=== PATIENT | male | born 1955 | race Caucasian/White ===

== ENCOUNTER 2024-03-21 16:45 | Emergency (ER) | payer MEDICARE, OTHER, SELFPAY ==
[2024-03-21] VITALS (15 sets, daily range): BP systolic 100–130; BP diastolic 63–92; PULSE 52–136; RESP 12–22; TEMP 36.7; O2SAT 93–98
--- NOTE | ~2024-03-21 | CT_ITS ---
EXAMINATION: CTA brain carotid DATE: 03/21/2024 19:10 INDICATION: concern for CVA TECHNIQUE: Computed tomographic angiography (CTA) of the head was performed without and with 100 mL O mnipaque-350 intravenous contrast. CTA of the neck was performed with intravenous contrast. Automated exposure control and iterative reconstruction technique were employed. The dose-length product was 1 951.76 mGy-cm. Maximum intensity projection and volume rendered 3D-reconstructions were created by delaney diaz technologist on a separate workstation. COMPARISON: None. FINDINGS: CT BRAIN: No acute large vessel infarct, intracranial hemorrhage, mass, or hydrocephalus. Moderate atrophy and chronic white matter change. Bilateral lens replacements. CTA HEAD: No large vessel occlusion, aneurysm, high flow vascular malformation, nidus or extravasation. Persist ent origin of the left posterior cerebral artery. Patent cerebral veins. Symmetric parenchymal enhancement. CTA NECK: Aortic arch and proximal great vessels: Dilated ascending aorta measuring up to 4.5 cm. Mild arch roberth cification. Normal arch anatomy. Right common carotid, carotid bifurcation, and internal carotid artery: Mild calcification at the bif urcation.There is 0% stenosis of the proximal right internal carotid artery relative to normal distal artery lumen diameter (NASCET criteria). Left common carotid, carotid bifurcation, and internal carotid artery: Mild calcification at the bifu rcation.There is 0% stenosis of the proximal left internal carotid artery relative to normal distal a rtery lumen diameter (NASCET criteria). Vertebral arteries: No significant plaque or stenosis. Vertebral arteries co-dominant. Other findings: None. IMPRESSION: No large vessel intracranial occlusion, high-grade intracranial stenosis, or aneurysm. No carotid or vertebral artery occlusion, dissection, or significant stenosis. Ectasia of the ascending thoracic aorta measuring up to 4.5 cm. Reviewed, dictated and finalized at location K. IMPRESSION: No large vessel intracranial occlusion, high-grade intracranial stenosis, or an eurysm. No carotid or vertebral artery occlusion, dissection, or significant stenosis. Ectasia of the ascending thoracic aorta measuring up to 4.5 cm.
--- NOTE | 2024-03-21 17:19 | ECG_ITS ---
SEE SCANNED COPY FOR CONFIRMED REPORT MTDD
--- NOTE | 2024-03-21 17:20 | PC.NURSE ---
This RN witness pt w/unsteady gait, patient refuses wheelchair.
[2024-03-21 17:59] LABS: Basophils Percent Auto 0.4 % (0.2-1.2); Eosinophils Percent Auto 0.4 % (0-4.4); Hematocrit 41.7 % (42.0-52.0); Hemoglobin 14.2 g/dL (14.0-18.0); Immature Granulocyte Absolute 0.01 K/mm3 (0.00-0.031); Immature Granulocyte Percent A 0.1 % (0-0.5); Immature Platelet Fraction Pct 7.3 % (0.9-11.2); Lymphocytes Absolute Auto 2.35 K/mm3 (0.9-3.2); Lymphocytes Percent Auto 34.1 % (18.3-44.2); Mean Corpuscular HGB Conc 34.1 g/dl (32-36); Mean Corpuscular Hemoglobin 32.5 pg (26-34); Mean Corpuscular Volume 95.4 fl (80-100); Mean Platelet Volume 11.5 fl (7.4-10.4); Monocytes Absolute Auto 0.9 K/mm3 (0.1-0.6); Monocytes Percent Auto 12.3 % (2.6-8.5); Neutrophils Absolute Auto 3.6 K/mm3 (1.3-6.7); Neutrophils Percent Auto 52.7 % (45.5-73.1); Platelet Count Result 119 k/mm3 (150-375); Red Blood Count 4.37 M/mm3 (4.6-6.20); Red Cell Distribution Width 12.4 % (11.5-14.5); White Blood Count 6.9 K/mm3 (4.5-10.0)
--- NOTE | 2024-03-21 17:59 | ED.GENADULT ---
HPI - General Adult General Chief complaint: Neuro Symptoms/Deficit Stated complaint: possible TIA Time Seen by Provider: 03/21/24 17:34 History of Present Illness HPI narrative: 68-year-old male presents to the emergency department for evaluation for increased lethargy, altered mental status. Patient does have dementia at baseline and does live in a memory care unit. Staff and family felt that the patient has been less active than his typical baseline. Patient did have a urinary tract infection a few weeks ago but this was treated. Patient denies any falls or injuries. Patient is DNR. Patient does have history of AFib and is on Eliquis. Related Data Allergies Allergy/AdvReac Type Severity Reaction Status Date / Time Penicillins Allergy Unknown Verified 03/21/24 17:21 Review of Systems Review of Systems: All systems reviewed & are unremarkable except as noted in HPI and below Exam Narrative: APPEARANCE: Well appearing, no pain, no distress, well-nourished. HEAD: normocephalic, atraumatic. EYES: PERRLA/EOMI, conjunctivae clear. NOSE: Normal no drainage EARS:TMS clear with good light reflex. THROAT: Pharynx clear, no exudate. NECK: Supple. No adenopathy, no masses. RESPIRATORY: Airway patent, respirations nonlabored. Clear to auscultation bilaterally, no rales, rhonchi, wheezing. CARDIOVASCULAR: Regular rate and rhythm without murmurs rubs or gallops. ABDOMINAL: Soft, nontender, nondistended, normal bowel sounds MUSCULOSKELETAL: Moves all extremities. Strength/ROM intact, No edema, No calf tenderness. NEURO: Alert. Cranial nerves II through XII intact. Difficulty participating in neuro exam but no focal deficit noted SKIN: Warm, dry. Normal Color Course Vital Signs Vital signs: Vital Signs Temperature 98.0 F 03/21/24 17:13 Pulse Rate 52 L 03/21/24 17:13 Respiratory Rate 16 03/21/24 17:13 Blood Pressure 100/63 03/21/24 17:13 Pulse Oximetry 96 03/21/24 17:13 Oxygen Delivery Room Air 03/21/24 17:13 Temperature 98.0 F 03/21/24 17:13 Pulse Rate 95 03/21/24 20:32 Respiratory Rate 17 03/21/24 20:32 Blood Pressure 120/80 03/21/24 20:32 Pulse Oximetry 98 03/21/24 20:16 Oxygen Delivery Room Air 03/21/24 17:13 Medical Decision Making MDM Narrative Medical decision making narrative: 68-year-old male present to the emergency department for evaluation for being less energetic than normal. Patient is afebrile with no leukocytosis and a stable hemoglobin. patient's creatinine is 1.7 and patient was treated with a L of IV fluids. No previous kidney function as documented. Patient no longer has a urinary tract infection on his UA. Patient denies any cough has no shortness of breath. Head CT was ordered and showed no acute abnormalities. Family was updated the results of the workup and they are comfortable with the patient going back to his care facility. The possibility of missing a CVA was discussed and they were still comfortable with the patient being discharged back to his care facility. Patient is on Eliquis. On re-evaluation patient has no complaints and as alert and appropriate Differential Diagnosis Differential Diagnosis: head injury, CVA, TIA, UTI COVID, RSV, influenza, dementia, delirium Vital Signs Vital Signs: Vital Signs Temperature 98.0 F 03/21/24 17:13 Pulse Rate 52 L 03/21/24 17:13 Respiratory Rate 16 03/21/24 17:13 Blood Pressure 100/63 03/21/24 17:13 Pulse Oximetry 96 03/21/24 17:13 Oxygen Delivery Room Air 03/21/24 17:13 Temperature 98.0 F 03/21/24 17:13 Pulse Rate 95 03/21/24 20:32 Respiratory Rate 17 03/21/24 20:32 Blood Pressure 120/80 03/21/24 20:32 Pulse Oximetry 98 03/21/24 20:16 Oxygen Delivery Room Air 03/21/24 17:13 Lab Data Lab results reviewed: Yes I reviewed the patient's lab results. 03/21/24 17:34 03/21/24 17:34 Labs: Lab Results 03/21/24
[2024-03-21 18:07] LABS: Alanine Aminotransferase 27 U/L (6-50); Albumin Level 4.7 g/dL (3.5-5.1); Alkaline Phosphatase 58 U/L (38-126); Anion Gap 13 mmol/L (4-12); Aspartate Amino Transferase 41 U/L (17-59); Bilirubin,Total 0.7 mg/dL (0.2-1.3); Blood Urea Nitrogen 38 mg/dL (9-20); Calcium 9.4 mg/dL (8.4-10.2); Carbon Dioxide 21 mmol/L (22-30); Chloride 106 mmol/L (98-107); Estimated CRCL calculation 46 ml/min; Estimated Glomerular Filt Rate 40; Glucose 117 mg/dL (65-110); Potassium 4.3 mmol/L (3.4-5.0); Sodium 140 mmol/L (137-145)
[2024-03-21 18:11] LABS: INR 1.4; Prothrombin Time 17.5 Seconds (11.1-14.7)
[2024-03-21 18:12] LABS: Partial Thromboplastin Time 34.4 Seconds (22.3-36.8)
[2024-03-21 18:27] LABS: Appearance Urine Clear (Clear); Bacteria Urine None Seen /hpf; Bilirubin Urine Negative (Negative); Blood Urine Negative (Negative); Color Urine Dark Yellow (Yellow); Glucose Urine UA Negative (Negative); Ketones Urine 1+ mg/dL (Negative); Leukocyte Esterase Ur Negative LEU/UL (Negative); Nitrate Urine Negative (Negative); Non Pathogenic Casts 0-2; Protein Urine Trace mg/dL (Negative); RBC Urine 0-2 /hpf (0-2); Squamous Epithelial Cell Urine None Seen /hpf (Few); WBC Urine 0-5 /hpf (0-3); pH Urine 5.5 (5.0-9.0)
[2024-03-21 18:31] LABS: Add Urine Microscopic? YES
--- NOTE | 2024-03-21 19:36 | PC.NURSE ---
This RN assumed care of pt after receiving report from KATHERINE Israel @ [id number].
--- NOTE | 2024-03-21 19:49 | PC.NURSE ---
Pt received straight cath by brett Gaming prior to this RN's arrival. Order placed just now.
[2024-03-21] MEDS: SODIUM CHLORIDE 0.9% IV 1,000 ML 999 ML IV CONT (19:54)
== END 2024-03-21 21:09 ==
PROVIDERS: Emergency Provider Emergency Medicine
DX: E86.0 Dehydration (principal); R41.0 Disorientation, unspecified; I48.91 Unspecified atrial fibrillation; Z66 Do not resuscitate; Z79.01 Long term (current) use of anticoagulants; I45.10 Unspecified right bundle-branch block; R94.31 Abnormal electrocardiogram [ECG] [EKG]; I77.810 Thoracic aortic ectasia
CPT/HCPCS: 36415; 70496; 70498; 80053; 81001; 85025; 85055; 85610; 85730; 93005; 96360; 99284; J7030; Q9967

== ENCOUNTER 2024-05-13 08:22 | Emergency (ER) | payer MEDICARE, OTHER, SELFPAY ==
--- NOTE | ~2024-05-13 | CT_ITS ---
EXAMINATION: CT brain wo con DATE: 05/13/2024 09:08 INDICATION: Status post fall. Patient on blood thinners. TECHNIQUE: Computed tomography (CT) of the head was performed without intravenous contrast. The dose- length product was 1286.34 mGy-cm. Automated exposure control and iterative reconstruction technique were employed. COMPARISON: None FINDINGS: Generalized atrophy. There are scattered mild periventricular and subcortical white matter changes, most likely related to small vessel ischemic disease (microangiopathy). No acute intracrania l hemorrhage, infarction, mass or mass effect. Paranasal sinuses and mastoids are pneumatized. No dep ressed skull fractures. IMPRESSION: 1. No acute intracranial abnormality. 2: Chronic age-related findings. Reviewed, dictated and finalized at location B.
--- NOTE | ~2024-05-13 | CT_ITS ---
EXAMINATION: CT cervical spine wo con DATE: 05/13/2024 09:08 INDICATION: Neck pain after fall TECHNIQUE: Computed tomography (CT) of the cervical spine was performed without intravenous contrast. The dose-length product was 512 mGy-cm. Automated exposure control and iterative reconstruction tech nique were employed. COMPARISON: None FINDINGS: Mild levocurvature of the cervical spine. There is disc narrowing at all cervical spine lev els. There is multilevel uncinate and facet hypertrophy. There is carotid atherosclerosis. Odontoid p rocess is normal. Craniovertebral junction is normal. Lung apices are normal. No paraspinal soft tiss ue abnormality. IMPRESSION: 1. No acute abnormality of the cervical spine. 2: Severe cervical spondylosis. Reviewed, dictated and finalized at location B.
[2024-05-13 08:41] VITALS: BP 125/79; PULSE 87; RESP 16; TEMP 36.3; O2SAT 98
[2024-05-13 09:32] VITALS: BP 124/96; PULSE 86; RESP 18; O2SAT 100
--- NOTE | 2024-05-13 10:26 | ED.GENADULT ---
HPI - General Adult General Chief complaint: Head Injury Stated complaint: fall, head injury Time Seen by Provider: 05/13/24 09:57 History of Present Illness HPI narrative: 68-year-old male presenting to the emergency department for evaluation after having a head injury at his correction. Staff called the family and told he had a fall and family brought the patient in by private. Patient does have a hematoma on his left forehead but denies any other pain or injury. Patient is on Eliquis. Patient was able to ambulate in the emergency department at his baseline. Related Data Allergies Allergy/AdvReac Type Severity Reaction Status Date / Time Penicillins Allergy Unknown Verified 05/13/24 09:26 Review of Systems Review of Systems: All systems reviewed & are unremarkable except as noted in HPI and below Exam Narrative: APPEARANCE: Well appearing, no pain, no distress, well-nourished. HEAD: normocephalic, left forehead contusion. EYES: PERRLA/EOMI, conjunctivae clear. NOSE: Normal no drainage EARS:TMS clear with good light reflex. THROAT: Pharynx clear, no exudate. NECK: Supple. No adenopathy, no masses. RESPIRATORY: Airway patent, respirations nonlabored. Clear to auscultation bilaterally, no rales, rhonchi, wheezing. CARDIOVASCULAR: Regular rate and rhythm without murmurs rubs or gallops. ABDOMINAL: Soft, nontender, nondistended, normal bowel sounds MUSCULOSKELETAL: Moves all extremities. Strength/ROM intact, No edema, No calf tenderness. NEURO: Alert. Cranial nerves II through XII intact. Grossly intact SKIN: Warm, dry. Normal Color Course Course Emergency Course: Patient family are comfortable plan for discharge back to the [facility] care unit Vital Signs Vital signs: Vital Signs Temperature 97.4 F L 05/13/24 08:41 Pulse Rate 87 05/13/24 08:41 Respiratory Rate 16 05/13/24 08:41 Blood Pressure 125/79 05/13/24 08:41 Pulse Oximetry 98 05/13/24 08:41 Oxygen Delivery Room Air 05/13/24 08:41 Temperature 97.4 F L 05/13/24 08:41 Pulse Rate 85 05/13/24 10:46 Respiratory Rate 16 05/13/24 10:46 Blood Pressure 124/96 H 05/13/24 10:46 Pulse Oximetry 97 05/13/24 10:46 Oxygen Delivery Room Air 05/13/24 08:41 Medical Decision Making MDM Narrative Medical decision making narrative: 68-year-old male presents to the emergency department for evaluation for a head injury. Patient does have a hematoma on his left forehead but no laceration or abrasion needing repair. Head and neck CTs were negative. Patient family are comfortable with plan for the patient to return back to his care facility. Differential Diagnosis Differential Diagnosis: Subarachnoid hemorrhage, subdural hematoma, cervical spine fracture, skull fracture, contusion, concussion Vital Signs Vital Signs: Vital Signs Temperature 97.4 F L 05/13/24 08:41 Pulse Rate 87 05/13/24 08:41 Respiratory Rate 16 05/13/24 08:41 Blood Pressure 125/79 05/13/24 08:41 Pulse Oximetry 98 05/13/24 08:41 Oxygen Delivery Room Air 05/13/24 08:41 Temperature 97.4 F L 05/13/24 08:41 Pulse Rate 85 05/13/24 10:46 Respiratory Rate 16 05/13/24 10:46 Blood Pressure 124/96 H 05/13/24 10:46 Pulse Oximetry 97 05/13/24 10:46 Oxygen Delivery Room Air 05/13/24 08:41 Imaging Data Radiologist's impression: Impressions Head CT 05/13/24 09:12 IMPRESSION: 1. No acute intracranial abnormality. 2: Chronic age-related findings. Cervical Spine CT 05/13/24 09:16 IMPRESSION: 1. No acute abnormality of the cervical spine. 2: Severe cervical spondylosis. Discharge Plan Discharge Clinical Impression: Closed head injury Patient Disposition: Home, Self-Care Condition: Stable Instructions: Antibiotic Form, Head Injury (ED) Additional Instructions: You are at increased risk of falling. Take the appropriate precautions. Have close follow-up with your primary care physici
--- NOTE | 2024-05-13 10:43 | PC.NURSE ---
Attempted to call [facility] to inform them that patient is being discharged and daughter will be bringing pt back. This RN did not receive an answer.
[2024-05-13 10:46] VITALS: BP 124/96; PULSE 85; RESP 16; O2SAT 97
== END 2024-05-13 10:46 ==
PROVIDERS: Emergency Provider Emergency Medicine; PCP Nurse Practitioner Family
DX: S00.83XA Contusion of other part of head, initial encounter (principal); Z79.01 Long term (current) use of anticoagulants; M47.812 Spondylosis without myelopathy or radiculopathy, cervical region; W19.XXXA Unspecified fall, initial encounter
CPT/HCPCS: 70450; 72125; 99284

== ENCOUNTER 2024-06-07 15:27 | Inpatient (IN) | payer MEDICARE, OTHER, SELFPAY ==
[2024-06-07] VITALS (10 sets, daily range): BP systolic 86–118; BP diastolic 53–89; PULSE 85–119; RESP 14–21; TEMP 36.4–36.9; O2SAT 95–100; BMI 27.3
--- NOTE | ~2024-06-07 | XR_ITS ---
EXAMINATION: XR chest 1V portable DATE: 06/07/2024 16:59 INDICATION: Hypotension TECHNIQUE: frontal view of the chest was obtained. COMPARISON: None FINDINGS: The lungs are clear with no focal airspace opacities, pulmonary edema, pleural effusion or pneumothor ax. Heart size is normal. Postoperative change of prior median sternotomy and cardiac valve repair, l ikely mitral. Calcified right hilar lymph node consistent with old granulomatous disease. IMPRESSION: 1. No acute cardiopulmonary disease. Reviewed, dictated and finalized at location A.
--- NOTE | ~2024-06-07 | CT_ITS ---
EXAMINATION: CT brain wo con DATE: 06/07/2024 17:14 INDICATION: Anticoagulated patient with dementia found down on floor. TECHNIQUE: Computed tomography (CT) of the head was performed without intravenous contrast. Sagittal and coronal reconstructions were performed. The dose Olvin head The dose-length product was 605.33 mGy-cm. COMPARISON: head CT dated 05/13/2024 FINDINGS: No fracture. There are multiple foci of gas surrounding the sella likely intravenous gas at the olinda nous sinus. Additional gas can be seen tracking within the bilateral sphenoparietal sinuses and in vi ew of the veins in the bilateral multi media specialist spaces. No evident pneumoencephaly. No acute intracranial hemorrhage, acute infarction or abnormal extra axial fluid collection. There is mild scattered white matter hypoattenuation consistent with chronic small vessel ischemic disease. Symmetric prominence o f the sulci and and subarachnoid spaces overlying the convexities consistent with moderate age-approp riate diffuse cerebral volume loss. Ventricles are normal and symmetric. No mass/mass effect. Change s of bilateral intraocular lens replacement. The orbits, paranasal sinuses and mastoid air cells are normal. IMPRESSION: 1. Prominent scattered likely intravenous gas. No fracture or acute intracranial process. 2. Stable appearance of age related changes including moderate diffuse volume loss and mild scattered white matter hypoattenuation consistent with chronic small vessel ischemic disease. Reviewed, dictated and finalized at location A. IMPRESSION: 1. Prominent scattered likely intravenous gas. No fracture or acute intracrania l process. 2. Stable appearance of age related changes including moderate diffuse volume l oss and mild scattered white matter hypoattenuation consistent with chronic sma ll vessel ischemic disease.
[2024-06-07] MEDS: SODIUM CHLORIDE 0.9% IV 3,000 ML 999 ML IV CONT (16:20)
[2024-06-07 16:55] LABS: Basophils Percent Auto 0.1 % (0.2-1.2); Eosinophils Percent Auto 0.1 % (0-4.4); Hematocrit 35.8 % (42.0-52.0); Hemoglobin 12.1 g/dL (14.0-18.0); Immature Granulocyte Absolute 0.03 K/mm3 (0.00-0.031); Immature Granulocyte Percent A 0.4 % (0-0.5); Immature Platelet Fraction Pct 6.5 % (0.9-11.2); Lymphocytes Absolute Auto 0.74 K/mm3 (0.9-3.2); Lymphocytes Percent Auto 10.5 % (18.3-44.2); Mean Corpuscular HGB Conc 33.8 g/dl (32-36); Mean Corpuscular Hemoglobin 33.1 pg (26-34); Mean Corpuscular Volume 97.8 fl (80-100); Mean Platelet Volume 11.2 fl (7.4-10.4); Monocytes Absolute Auto 0.5 K/mm3 (0.1-0.6); Monocytes Percent Auto 7.6 % (2.6-8.5); Neutrophils Absolute Auto 5.8 K/mm3 (1.3-6.7); Neutrophils Percent Auto 81.3 % (45.5-73.1); Platelet Count Result 127 k/mm3 (150-375); Red Blood Count 3.66 M/mm3 (4.6-6.20); Red Cell Distribution Width 12.8 % (11.5-14.5); White Blood Count 7.1 K/mm3 (4.5-10.0)
[2024-06-07 17:04] LABS: Partial Thromboplastin Time 32.2 Seconds (22.3-36.8)
[2024-06-07 17:05] LABS: Lactic Acid Reflex 1.7 mmol/L (0.7-2.0)
[2024-06-07 17:06] LABS: Ethanol < 10 mg/dL (<10); Phosphorus 3.5 mg/dL (2.5-4.5)
[2024-06-07 17:12] LABS: Add Urine Microscopic? YES; Appearance Urine Cloudy (Clear); Bacteria Urine None Seen /hpf; Bilirubin Urine Negative (Negative); Blood Urine Negative (Negative); Color Urine Yellow (Yellow); Glucose Urine UA Negative (Negative); Ketones Urine Trace mg/dL (Negative); Leukocyte Esterase Ur Negative LEU/UL (Negative); Need Manual Microscopic Reviewed; Nitrate Urine Negative (Negative); Protein Urine 2+ mg/dL (Negative); RBC Urine 0-2 /hpf (0-2); Specific Grav Ur 1.018 (1.001-1.035); Squamous Epithelial Cell Urine Few /hpf (Few)
[2024-06-07 17:15] LABS: Amphetamine Screen Urine Negative (Negative); Barbiturate Screen Urine Negative (Negative); Benzodiazepines Screen Urine Negative (Negative); Cannabinoid Screen Urine Negative (Negative); Cocaine Screen Urine Negative (Negative); Methadone Screen Urine Negative (Negative); Opiate Screen Urine Negative (Negative); Phencyclidine Screen Urine Negative (Negative)
[2024-06-07 17:17] LABS: Troponin I < 0.012 ng/mL (0.000-0.034)
[2024-06-07 17:21] LABS: Alanine Aminotransferase 20 U/L (6-50); Alkaline Phosphatase 68 U/L (38-126); Anion Gap 9 mmol/L (4-12); Aspartate Amino Transferase 29 U/L (17-59); Bilirubin,Total 0.2 mg/dL (0.2-1.3); Blood Urea Nitrogen 22 mg/dL (9-20); Calcium 8.8 mg/dL (8.4-10.2); Carbon Dioxide 28 mmol/L (22-30); Chloride 97 mmol/L (98-107); Estimated CRCL calculation 46 ml/min; Estimated Glomerular Filt Rate 43; Glucose 111 mg/dL (65-110); Lipase 206 U/L (23-300); Potassium 4.3 mmol/L (3.4-5.0); Sodium 134 mmol/L (137-145)
[2024-06-07 17:26] LABS: NT Pro B Type Natriuretic Pept 1940 pg/mL (19.9-100)
[2024-06-07 17:34] LABS: Influenza A QL RT-PCR Negative (Negative); Influenza B QL RT-PCR Negative (Negative); RSV RNA, RT-PCR Negative (Negative); SARS-CoV-2 RNA PCR Negative (Negative)
--- NOTE | 2024-06-07 19:24 | ED.GENADULT ---
HPI - General Adult General Chief complaint: Fall Stated complaint: fall Time Seen by Provider: 06/07/24 16:07 History of Present Illness HPI narrative: This is a 68-year-old male with early dementia presenting for a fall. Patient was found sitting on the floor his room in the long-term. Nursing was concerned because his blood pressures were soft with a felt like his hands were purplish in cold. He was then sent to the hospital for evaluation. Patient has dementia and has no complaints at this time. He does not remember the events that led him to the ED. He is denying fevers chills chest abdominal pain or urinary symptoms. Patient is DNR DNI. Related Data Allergies Allergy/AdvReac Type Severity Reaction Status Date / Time Penicillins Allergy Unknown Verified 05/13/24 09:26 [facility] Past Medical History Medical History Dementia Exam Narrative: APPEARANCE: No apparent distress. A&O times 1-2 which is baseline Head: atraumatic. EYES: EOMI, NOSE: Atraumatic NECK: Trachea midline RESPIRATORY: No increased rate of breathing clear to auscultation CARDIOVASCULAR: RRR, pitting edema lower extremities which is chronic ABDOMINAL: Non-distended soft nontender MUSCULOSKELETAl: No obvious deformities NEURO: Alert. Cranial nerves 2-12 grossly intact. Sensation light touch, motor function cerebellar function intact for 4 extremities. Gait exam was deferred SKIN:: Warm, dry. Normal color PSYCHIATRIC: Normal affect Course Vital Signs Vital signs: Vital Signs Temperature 97.6 F 06/07/24 15:33 Pulse Rate 92 06/07/24 15:33 Respiratory Rate 18 06/07/24 15:33 Blood Pressure 86/53 L 06/07/24 15:33 Pulse Oximetry 100 06/07/24 15:33 Oxygen Delivery Room Air 06/07/24 15:33 Temperature 97.6 F 06/07/24 15:33 Pulse Rate 112 H 06/07/24 18:16 Respiratory Rate 18 06/07/24 18:16 Blood Pressure 115/79 06/07/24 18:16 Pulse Oximetry 98 06/07/24 18:16 Oxygen Delivery Room Air 06/07/24 15:33 Medical Decision Making MDM Narrative Medical decision making narrative: -Course: 68-year-old male with dementia presenting after being found for his apartment. On arrival his blood pressures were soft. Was given 30 cc/kilogram bolus with improvement in blood pressure. Full sepsis workup ordered. Patient found have a UTI and was started on ceftriaxone. CT of the head showed gas in the venous system. This could be caused due to peripheral IV insertion or trauma. Dr. Julian from Neurosurgery was consulted. No evidence of skull fracture on imaging or exam. Patient is DNR DNI. Conservative management only. Patient placed on 100% NRB 02. Patient will be admitted the hospital for further management. Workup and findings discussed with family (Abel PEÑA) and they are in agreement. -DDX includes but is not limited to: Sepsis, dehydration, intracranial hemorrhage, progression of dementia, UTI, pneumonia, viral syndrome -Co-morbidities complicating care: Advanced dementia, AFib on Eliquis -Social determinants of health: alf resident, Denies drugs or alcohol -Hx from independent Sources: Family @ bedside -Independent interpretation of studies: White count 7.1. Hemoglobin 12 point 1. Metabolic panel showed slight hyponatremia and hypochloremia. Kidney function at baseline. Lactic 1.7 Troponin undetectable BNP 1900. Patient has some chronic pitting edema of lower extremities but no cardiomegaly or pulmonary edema on chest x-ray. Patient was monitored during fluid resuscitation and any further distress and blood pressure responded appropriately Urine with 6-10 white blood cells and trace ketones. Started on ceftriaxone while we await culture results. UDS and alcohol level undetectable. Viral swabs negative. CT head reviewed Chest x-ray reviewed -Discussion of Management/Consultants: Dr. Julian NSX, Dr. Zapata Hospitalist -Interventions:
--- NOTE | 2024-06-07 19:44 | ECG_ITS ---
Test Date: 2024-06-07 19:48:15 Measurements Intervals [place] Rate: 93 P: 0 CA: 0 QRS: 20 QRSD: 87 T: 23 QT: 368 QTc: 460 Interpretive Statements ATRIAL FIBRILLATION POSSIBLE RIGHT VENTRICULAR CONDUCTION DELAY [RSR (QR) IN V1/V2] NONSPECIFIC ST & T-WAVE ABNORMALITY ABNORMAL RHYTHM ECG No previous ECG available for comparison Electronically Signed On 06-08-2024 09:55:06 CDT by Ramses Petersen M.D.
--- NOTE | 2024-06-07 19:50 | PC.NURSE ---
Pt placed on 10L nonrebreather per EDP Dr. Wooten's request after receiving CT scan report.
--- NOTE | 2024-06-07 20:15 | PC.NURSE ---
[facility] given update.
[2024-06-07 20:17] LABS: Troponin I < 0.012 ng/mL (0.000-0.034)
--- NOTE | 2024-06-07 20:29 | PM.IMHP ---
H&P: HPI History of Present Illness Date/Time: 06/07/24 20:29 Chief Complaint: fall Narrative: This is a 68-year-old male with past medical history significant for advanced dementia patient lives at Memory Care Unit in local senior care. Patient was found sitting on the floor was brought to the emergency room for evaluation preliminary workup has been Significant for urinalysis with 6-10 WBCs present, a CT of the head showed scattered intravenous gas. History has been obtained upon reviewing medical records ,emergency room physician and daughter who is at bedside patient is demented unable to give any history. Patient has been placed in observation for further evaluation management and treatment EXAMINATION: XR chest 1V portable DATE: 06/07/2024 16:59 INDICATION: Hypotension TECHNIQUE: frontal view of the chest was obtained. COMPARISON: None FINDINGS: The lungs are clear with no focal airspace opacities, pulmonary edema, pleural effusion or pneumothorax. Heart size is normal. Postoperative change of prior median sternotomy and cardiac valve repair, likely mitral. Calcified right hilar lymph node consistent with old granulomatous disease. IMPRESSION: 1. No acute cardiopulmonary disease. EXAMINATION: CT brain wo con DATE: 06/07/2024 17:14 INDICATION: Anticoagulated patient with dementia found down on floor. TECHNIQUE: Computed tomography (CT) of the head was performed without intravenous contrast. Sagittal and coronal reconstructions were performed. The dose Olvin head The dose-length product was 605.33 mGy-cm. COMPARISON: head CT dated 05/13/2024 FINDINGS: No fracture. There are multiple foci of gas surrounding the sella likely intravenous gas at the cavernous sinus. Additional gas can be seen tracking within the bilateral sphenoparietal sinuses and in view of the veins in the bilateral assembly machine offbearer spaces. No evident pneumoencephaly. No acute intracranial hemorrhage, acute infarction or abnormal extra axial fluid collection. There is mild scattered white matter hypoattenuation consistent with chronic small vessel ischemic disease. Symmetric prominence of the sulci and and subarachnoid spaces overlying the convexities consistent with moderate age-appropriate diffuse cerebral volume loss. Ventricles are normal and symmetric. No mass/mass effect. Changes of bilateral intraocular lens replacement. The orbits, paranasal sinuses and mastoid air cells are normal. IMPRESSION: 1. Prominent scattered likely intravenous gas. No fracture or acute intracranial process. 2. Stable appearance of age related changes including moderate diffuse volume loss and mild scattered white matter hypoattenuation consistent with chronic small vessel ischemic disease. Review of Systems Review of Systems: ROS unobtainable: Yes other (dementia) [facility] Past Medical History Medical History Dementia Family History Family History (Updated 06/07/24 @ 22:17 by Megan Munoz RN) Other Unknown family medical history Social History Social History Smoking status: Former smoker Tobacco type: cigarettes Alcohol intake: never Substance use: never Substance use type: does not use Spiritual care concerns: No Meds Home Medications and Allergies Home Medications Medication Instructions Recorded Confirmed Type Adults Multivitamin 1 tab-cap PO DAILY 06/07/24 06/07/24 History apixaban 5 mg tablet (Eliquis) 5 mg PO BID 06/07/24 06/07/24 History cyanocobalamin (vitamin B-12) 1,000 mcg PO .AYAH 06/07/24 06/07/24 History 1,000 mcg tablet divalproex 125 mg capsule,delayed 125 mg PO TID 06/07/24 06/07/24 History release sprinkle donepezil 10 mg tablet 10 mg PO HS 06/07/24 06/07/24 History ezetimibe 10 mg tablet 10 mg PO DAILY 06/07/24 06/07/24 History levetiracetam 500 mg tablet 500 mg PO Q12H
--- NOTE | 2024-06-07 22:51 | PC.NURSE ---
Spoke with daughter Abel who stated pt is supposed to take metoprolol 50 mg in am and 25mg in tea. On medication list from [facility] stated 50mg BID. Abel stated pt BP has been running low at [facility]. I attempted to call [facility] with out an answer.
[2024-06-08] VITALS (10 sets, daily range): BP systolic 110–122; BP diastolic 80–87; PULSE 87–101; RESP 18–20; TEMP 36.1–36.7; O2SAT 96–100
[2024-06-08] MEDS: LACTATED RINGERS 1,000 ML 75 ML IV CONT ×2 (00:05→12:49)
[2024-06-08] MEDS: SERTRALINE HCL 50 MG TABLET 150 MG PO (09:33)
[2024-06-08] MEDS: DIVALPROEX SODIUM SPRINKLE 125 MG CAP.DR PO ×3 (09:33→17:30)
[2024-06-08] MEDS: APIXABAN 5 MG TABLET PO ×2 (09:34→21:45)
[2024-06-08] MEDS: levETIRAcetam 500 MG TABLET PO ×2 (09:34→21:44)
--- NOTE | 2024-06-08 10:25 | PM.IMPN ---
Progress Note: A&P Assessment and Plan (1) Fall: Code(s): W19.XXXA - Unspecified fall, initial encounter Status: Acute Assessment and Plan: fall precautions (2) Acute UTI: Code(s): N39.0 - Urinary tract infection, site not specified Status: Acute Assessment and Plan: started on Rocephin - hopper care cultures in progress (3) Dementia: Code(s): F03.90 - Unspecified dementia, unspecified severity, without behavioral disturbance, psychotic disturbance, mood disturbance, and anxiety Status: Acute Assessment and Plan: continue memantine continue divalproex Plan on eliquis- will continue for dvt prophylaxis -advance diet as tolerated once bedside swallow is done Time Spent With Patient Time with patient: Greater than 35 minutes Subjective Date/time seen: 06/08/24 10:25 Interval history: Narrative retrieved from H/P; This is a 68-year-old male with past medical history significant for advanced dementia patient lives at [facility] in [facility] [place] [facility]. Patient was found sitting on the floor was brought to the emergency room for evaluation preliminary workup has been Significant for urinalysis with 6-10 WBCs present, a CT of the head showed scattered intravenous gas. History has been obtained upon reviewing medical records ,emergency room physician and daughter who is at bedside patient is demented unable to give any history. Patient has been placed in observation for further evaluation management and treatment 06/08- pt is seen and examined. pt is pleasantly confused but that is his baseline as has vascular dementia. denies any pain, n/v. Review of Systems Review of Systems: unable to do ROS as pt is confused but able to report that yesterday had pain but not now ROS unobtainable: Yes other (dementia) Exam Const: General: comfortable, no acute distress, well developed, alert, awake, average body habitus and thin Nutritional Appearance: average body habitus and thin Other: consfused HENMT: Head: normal to inspection, normocephalic and atraumatic Ears: hearing grossly normal bilaterally Face/Nose/Sinus: normal facial exam Face and sinus: normal facial exam Eyes: General: appearance normal, both eyes and all related structures Pupils: Equal, round and reactive pupils present EOM: EOMs intact bilaterally Neck: Neck: full ROM, no lymphadenopathy and no JVD Thyroid: thyroid normal Lymphatic: no lymphadenopathy noted Resp: Effort & Inspection: normal respiratory effort and able to speak in complete sentences Auscultation: clear to auscultation bilaterally Cardio: Jugular venous distension: no JVD Rate: regular rate Rhythm: regular rhythm Heart sounds: S1 normal heart sound present and S2 normal heart sound present : General: Yes deferred Skin: Rashes: no rashes Wounds: no wounds Neuro: General: moves all extremities, no focal motor deficits, CN's II-XI intact bilaterally and Unable to assess gait Cranial nerves: Yes CN's II-XII intact bilaterally and Yes Equal, round and reactive pupils present Cognition (Neuro): abnormal cognition ( advanced dementia) Speech: normal speech Gait exam (Neuro): Unable to assess gait Motor exam (neuro): 5/5 motor strength present throughout Extrem: General: normal to inspection, full ROM, no joint enlargement and no pedal edema Objective Data Vital Signs Vital Signs: Vital Signs - 24 hr 06/07/24 15:33 06/07/24 15:48 06/07/24 15:48 Temperature 97.6 F Pulse Rate 92 111 H 103 H Respiratory Rate 18 19 21 H Blood Pressure 86/53 L 93/67 L 93/67 L Pulse Oximetry 100 96 95 Oxygen Delivery Room Air Oxygen Flow Rate 06/07/24 16:16 06/07/24 16:31 06/07/24 17:20 Temperature Pulse Rate 85 102 H 91 Respiratory Rate 17 21 H 17 Blood Pressure 89/61 L 104/89 Pulse Oximetry 99 100 99 Oxygen Delivery Oxygen Flow Rate 06/07/24 18:16 06/07/24 19:50 06/07/24 21:13 Temperat
--- NOTE | 2024-06-08 11:10 | PC.NURSE ---
Spoke with nurse Reis at [facility]. Blood pressure medications clarified.
[2024-06-08] MEDS: lisinopriL 2.5 MG TABLET PO (12:49)
[2024-06-08] MEDS: METOPROLOL SUCCINATE EXT REL 25 MG TABCR PO (17:31)
--- NOTE | 2024-06-08 19:19 | PC.NURSE ---
Per hospitalist order, non-rebreather removed. Pt tolerating well.
[2024-06-08] MEDS: DONEPEZIL HCL 10 MG TABLET PO (21:44)
[2024-06-08] MEDS: MEMANTINE HCL XR 28 MG CAP PO (21:44)
[2024-06-08] MEDS: ROSUVASTATIN 20 MG TABLET 40 MG PO (21:44)
[2024-06-09] MEDS: LACTATED RINGERS 1,000 ML 75 ML IV CONT (05:45)
[2024-06-09 06:00] VITALS: BP 122/82; PULSE 66; RESP 20; TEMP 36.2; O2SAT 100
[2024-06-09] MEDS: APIXABAN 5 MG TABLET PO ×2 (08:24→20:05)
[2024-06-09] MEDS: lisinopriL 2.5 MG TABLET PO (08:24)
[2024-06-09] MEDS: levETIRAcetam 500 MG TABLET PO ×2 (08:24→20:06)
[2024-06-09] MEDS: DIVALPROEX SODIUM SPRINKLE 125 MG CAP.DR PO ×3 (08:24→17:32)
[2024-06-09] MEDS: SERTRALINE HCL 50 MG TABLET 150 MG PO (08:24)
[2024-06-09 08:25] VITALS: PULSE 111
[2024-06-09] MEDS: METOPROLOL SUCCINATE EXT REL 25 MG TABCR PO ×2 (08:25→17:33)
--- NOTE | 2024-06-09 09:26 | PM.IMPN ---
Progress Note: A&P Assessment and Plan (1) Fall: Code(s): W19.XXXA - Unspecified fall, initial encounter Status: Acute Assessment and Plan: fall precautions - PT/OT ordered (2) Acute UTI: Code(s): N39.0 - Urinary tract infection, site not specified Status: Acute Assessment and Plan: started on Rocephin - hopper care cultures in progress (3) Dementia: Code(s): F03.90 - Unspecified dementia, unspecified severity, without behavioral disturbance, psychotic disturbance, mood disturbance, and anxiety Status: Acute Assessment and Plan: continue memantine continue divalproex Plan on eliquis- will continue for dvt prophylaxis -advance diet as tolerated once bedside swallow is done Time Spent With Patient Time with patient: Greater than 35 minutes Subjective Date/time seen: 06/09/24 09:26 Interval history: Narrative retrieved from H/P; This is a 68-year-old male with past medical history significant for advanced dementia patient lives [facility]. Patient was found sitting on the floor was brought to the emergency room for evaluation preliminary workup has been Significant for urinalysis with 6-10 WBCs present, a CT of the head showed scattered intravenous gas. History has been obtained upon reviewing medical records ,emergency room physician and daughter who is at bedside patient is demented unable to give any history. Patient has been placed in observation for further evaluation management and treatment 06/08- pt is seen and examined. pt is pleasantly confused but that is his baseline as has vascular dementia. denies any pain, n/v. 06/09 uneventful night but this am is restless, trying to climb out of bed, agitated. Will order ativan x 1 iv for concern of safety and close monitoring for mental and resp. status. Review of Systems Review of Systems: unable to do ROS as pt is confused but able to report that yesterday had pain but not now ROS unobtainable: Yes other (dementia) Exam Narrative: patient is laying in a stretcher Const: General: comfortable, no acute distress, well developed, alert, awake, average body habitus and thin Nutritional Appearance: average body habitus and thin Orientation/consciousness: Other orientation findings ( demented) Other: consfused HENMT: Head: normal to inspection, normocephalic and atraumatic Ears: hearing grossly normal bilaterally Face/Nose/Sinus: normal facial exam Face and sinus: normal facial exam Eyes: General: appearance normal, both eyes and all related structures Pupils: Equal, round and reactive pupils present EOM: EOMs intact bilaterally Neck: Neck: full ROM, no lymphadenopathy and no JVD Thyroid: thyroid normal Lymphatic: no lymphadenopathy noted Resp: Effort & Inspection: normal respiratory effort and able to speak in complete sentences Auscultation: clear to auscultation bilaterally Cardio: Jugular venous distension: no JVD Rate: regular rate Rhythm: regular rhythm Heart sounds: S1 normal heart sound present and S2 normal heart sound present : General: Yes deferred Skin: Rashes: no rashes Wounds: no wounds Neuro: General: moves all extremities, no focal motor deficits, CN's II-XI intact bilaterally and Unable to assess gait Cranial nerves: Yes CN's II-XII intact bilaterally and Yes Equal, round and reactive pupils present Cognition (Neuro): abnormal cognition ( advanced dementia) Speech: normal speech Gait exam (Neuro): Unable to assess gait Motor exam (neuro): 5/5 motor strength present throughout Extrem: General: normal to inspection, full ROM, no joint enlargement and no pedal edema Objective Data Vital Signs Vital Signs: Vital Signs - 24 hr 06/08/24 14:28 06/08/24 14:33 06/08/24 17:31 Temperature 97.4 F L Pulse Rate 87 101 H Respiratory Rate 18 Blood Pressure 110/81 Pulse Oximetry 97 100 Oxygen Delivery Non-Rebreathe
[2024-06-09 09:29] VITALS: O2SAT 100
[2024-06-09] MEDS: TAMSULOSIN HCL 0.4 MG CAPSULE PO (13:41)
[2024-06-09 14:25] VITALS: BP 102/80; PULSE 98; RESP 16; TEMP 36.9; O2SAT 97
[2024-06-09 17:33] VITALS: PULSE 87
[2024-06-09] MEDS: MEMANTINE HCL XR 28 MG CAP PO (20:05)
[2024-06-09] MEDS: ROSUVASTATIN 20 MG TABLET 40 MG PO (20:05)
[2024-06-09] MEDS: DONEPEZIL HCL 10 MG TABLET PO (20:05)
[2024-06-09 21:08] VITALS: BP 111/80; PULSE 100; RESP 18; TEMP 36.6; O2SAT 97
[2024-06-10] MEDS: LACTATED RINGERS 1,000 ML 75 ML IV CONT ×2 (02:50→15:19)
[2024-06-10 05:36] VITALS: BP 139/87; PULSE 91; RESP 18; TEMP 36.4; O2SAT 100
[2024-06-10] MEDS: levETIRAcetam 500 MG TABLET PO ×2 (07:54→20:25)
[2024-06-10] MEDS: lisinopriL 2.5 MG TABLET PO (07:54)
[2024-06-10] MEDS: APIXABAN 5 MG TABLET PO ×2 (07:54→20:24)
[2024-06-10] MEDS: DIVALPROEX SODIUM SPRINKLE 125 MG CAP.DR PO ×3 (07:54→20:24)
[2024-06-10 07:55] VITALS: PULSE 90
[2024-06-10] MEDS: METOPROLOL SUCCINATE EXT REL 25 MG TABCR PO ×2 (07:55→17:35)
[2024-06-10] MEDS: TAMSULOSIN HCL 0.4 MG CAPSULE PO (07:55)
[2024-06-10] MEDS: SERTRALINE HCL 50 MG TABLET 150 MG PO (07:55)
[2024-06-10 08:00] VITALS: O2SAT 100
--- NOTE | 2024-06-10 10:25 | PM.IMPN ---
Progress Note: A&P Assessment and Plan (1) Fall: Code(s): W19.XXXA - Unspecified fall, initial encounter Status: Acute Assessment and Plan: fall precautions - PT/OT ordered (2) Acute UTI: Code(s): N39.0 - Urinary tract infection, site not specified Status: Acute Assessment and Plan: started on Rocephin - hopper care cultures in progress - 06/10- urine culture is negative so far if still periods of confusion- will consider repeating CT head - Flomax was started on 06/09 (3) Dementia: Code(s): F03.90 - Unspecified dementia, unspecified severity, without behavioral disturbance, psychotic disturbance, mood disturbance, and anxiety Status: Acute Assessment and Plan: continue memantine continue divalproex Plan on eliquis- will continue for dvt prophylaxis -advance diet as tolerated once bedside swallow is done Time Spent With Patient Time with patient: Greater than 35 minutes Subjective Date/time seen: 06/10/24 10:25 Interval history: Narrative retrieved from H/P; This is a 68-year-old male with past medical history significant for advanced dementia patient lives at [facility]. Patient was found sitting on the floor was brought to the emergency room for evaluation preliminary workup has been Significant for urinalysis with 6-10 WBCs present, a CT of the head showed scattered intravenous gas. History has been obtained upon reviewing medical records ,emergency room physician and daughter who is at bedside patient is demented unable to give any history. Patient has been placed in observation for further evaluation management and treatment 06/08- pt is seen and examined. pt is pleasantly confused but that is his baseline as has vascular dementia. denies any pain, n/v. 06/09 uneventful night but this am is restless, trying to climb out of bed, agitated. Will order ativan x 1 iv for concern of safety and close monitoring for mental and resp. status. 06/10- atrivan was ordered yesterday but was not administered as pt settled down. Will try to avoid agitations meds and utilize redirection, ambulation, distraction if possible. Review of Systems Review of Systems: calm this am, sleeping but wake up when spoken to ROS unobtainable: Yes other (dementia) Exam Narrative: patient is laying in a stretcher Const: General: comfortable, no acute distress, well developed, alert, awake, average body habitus and thin Nutritional Appearance: average body habitus and thin Orientation/consciousness: Other orientation findings ( demented) Other: consfused HENMT: Head: normal to inspection, normocephalic and atraumatic Ears: hearing grossly normal bilaterally Face/Nose/Sinus: normal facial exam Face and sinus: normal facial exam Eyes: General: appearance normal, both eyes and all related structures Pupils: Equal, round and reactive pupils present EOM: EOMs intact bilaterally Neck: Neck: full ROM, no lymphadenopathy and no JVD Thyroid: thyroid normal Lymphatic: no lymphadenopathy noted Resp: Effort & Inspection: normal respiratory effort and able to speak in complete sentences Auscultation: clear to auscultation bilaterally Cardio: Jugular venous distension: no JVD Rate: regular rate Rhythm: regular rhythm Heart sounds: S1 normal heart sound present and S2 normal heart sound present : General: Yes deferred Skin: Rashes: no rashes Wounds: no wounds Neuro: General: moves all extremities, no focal motor deficits, CN's II-XI intact bilaterally and Unable to assess gait Cranial nerves: Yes CN's II-XII intact bilaterally and Yes Equal, round and reactive pupils present Cognition (Neuro): abnormal cognition ( advanced dementia) Speech: normal speech Gait exam (Neuro): Unable to assess gait Motor exam (neuro): 5/5 motor strength present throughout Extrem: General: normal to inspection, full ROM, no joint enlargement and no pe
[2024-06-10 15:23] VITALS: BP 127/78; PULSE 93; RESP 19; TEMP 36.6; O2SAT 100
[2024-06-10 17:35] VITALS: PULSE 92
[2024-06-10 20:13] VITALS: BP 126/78; PULSE 93; RESP 18; TEMP 36.8; O2SAT 99
[2024-06-10] MEDS: ROSUVASTATIN 20 MG TABLET 40 MG PO (20:23)
[2024-06-10] MEDS: MEMANTINE HCL XR 28 MG CAP PO (20:23)
[2024-06-10] MEDS: DONEPEZIL HCL 10 MG TABLET PO (20:25)
[2024-06-11 05:01] VITALS: BP 135/88; PULSE 95; RESP 18; TEMP 36.7; O2SAT 99
--- NOTE | 2024-06-11 09:24 | PM.IMPN ---
Progress Note: A&P Assessment and Plan (1) Fall: Code(s): W19.XXXA - Unspecified fall, initial encounter Status: Acute Assessment and Plan: fall precautions - PT/OT ordered (2) Acute UTI: Code(s): N39.0 - Urinary tract infection, site not specified Status: Acute Assessment and Plan: started on Rocephin - hopper care cultures in progress - 06/10- urine culture is negative so far if still periods of confusion- will consider repeating CT head - Flomax was started on 06/09 (3) Dementia: Code(s): F03.90 - Unspecified dementia, unspecified severity, without behavioral disturbance, psychotic disturbance, mood disturbance, and anxiety Status: Acute Assessment and Plan: continue memantine continue divalproex Plan on eliquis- will continue for dvt prophylaxis -advance diet as tolerated once bedside swallow is done Time Spent With Patient Time with patient: Greater than 35 minutes Subjective Date/time seen: 06/11/24 09:24 Interval history: Narrative retrieved from H/P; This is a 68-year-old male with past medical history significant for advanced dementia patient lives at [facility]. Patient was found sitting on the floor was brought to the emergency room for evaluation preliminary workup has been Significant for urinalysis with 6-10 WBCs present, a CT of the head showed scattered intravenous gas. History has been obtained upon reviewing medical records ,emergency room physician and daughter who is at bedside patient is demented unable to give any history. Patient has been placed in observation for further evaluation management and treatment 06/08- pt is seen and examined. pt is pleasantly confused but that is his baseline as has vascular dementia. denies any pain, n/v. 06/09 uneventful night but this am is restless, trying to climb out of bed, agitated. Will order ativan x 1 iv for concern of safety and close monitoring for mental and resp. status. 06/10- Ativan was ordered yesterday but was not administered as pt settled down. Will try to avoid agitations meds and utilize redirection, ambulation, distraction if possible. 06/11 pt is seen and examined. He is up in the chair - he is alert but somewhat confused- his baseline. Anticipate discharge back tomorrow Review of Systems Review of Systems: calm this am ROS unobtainable: Yes other (dementia) Exam Narrative: patient is laying in a stretcher Const: General: comfortable, no acute distress, well developed, alert, awake, average body habitus and thin Nutritional Appearance: average body habitus and thin Orientation/consciousness: Other orientation findings ( demented) Other: consfused HENMT: Head: normal to inspection, normocephalic and atraumatic Ears: hearing grossly normal bilaterally Face/Nose/Sinus: normal facial exam Face and sinus: normal facial exam Eyes: General: appearance normal, both eyes and all related structures Pupils: Equal, round and reactive pupils present EOM: EOMs intact bilaterally Neck: Neck: full ROM, no lymphadenopathy and no JVD Thyroid: thyroid normal Lymphatic: no lymphadenopathy noted Resp: Effort & Inspection: normal respiratory effort and able to speak in complete sentences Auscultation: clear to auscultation bilaterally Cardio: Jugular venous distension: no JVD Rate: regular rate Rhythm: regular rhythm Heart sounds: S1 normal heart sound present and S2 normal heart sound present : General: Yes deferred Skin: Rashes: no rashes Wounds: no wounds Neuro: General: moves all extremities, no focal motor deficits, CN's II-XI intact bilaterally and Unable to assess gait Cranial nerves: Yes CN's II-XII intact bilaterally and Yes Equal, round and reactive pupils present Cognition (Neuro): abnormal cognition ( advanced dementia) Speech: normal speech Gait exam (Neuro): Unable to assess gait Motor exam (neuro): 5/5 motor strength
[2024-06-11 10:05] VITALS: BP 107/82
[2024-06-11 10:10] VITALS: PULSE 109; O2SAT 97
[2024-06-11] MEDS: TAMSULOSIN HCL 0.4 MG CAPSULE PO (10:10)
[2024-06-11] MEDS: DIVALPROEX SODIUM SPRINKLE 125 MG CAP.DR PO ×2 (10:10→16:44)
[2024-06-11] MEDS: APIXABAN 5 MG TABLET PO ×2 (10:10→20:45)
[2024-06-11] MEDS: levETIRAcetam 500 MG TABLET PO ×2 (10:10→20:45)
[2024-06-11] MEDS: lisinopriL 2.5 MG TABLET PO (10:10)
[2024-06-11] MEDS: SERTRALINE HCL 50 MG TABLET 150 MG PO (10:10)
[2024-06-11] MEDS: METOPROLOL SUCCINATE EXT REL 25 MG TABCR PO ×2 (10:10→16:44)
[2024-06-11 14:00] VITALS: BP 102/79; PULSE 92; RESP 16; TEMP 36.6; O2SAT 96
[2024-06-11 16:44] VITALS: PULSE 97
[2024-06-11] MEDS: LACTATED RINGERS 1,000 ML 75 ML IV CONT (16:44)
[2024-06-11] MEDS: MEMANTINE HCL XR 28 MG CAP PO (20:45)
[2024-06-11] MEDS: DONEPEZIL HCL 10 MG TABLET PO (20:45)
[2024-06-11] MEDS: ROSUVASTATIN 20 MG TABLET 40 MG PO (20:45)
[2024-06-11 22:00] VITALS: BP 124/89; PULSE 76; RESP 20; TEMP 36.6; O2SAT 98
[2024-06-12] MEDS: LACTATED RINGERS 1,000 ML 75 ML IV CONT (05:39)
[2024-06-12 06:00] VITALS: BP 113/75; PULSE 89; RESP 20; TEMP 36.7; O2SAT 99
[2024-06-12] MEDS: levETIRAcetam 500 MG TABLET PO (09:22)
[2024-06-12] MEDS: lisinopriL 2.5 MG TABLET PO (09:22)
[2024-06-12] MEDS: APIXABAN 5 MG TABLET PO (09:22)
[2024-06-12] MEDS: SERTRALINE HCL 50 MG TABLET 150 MG PO (09:22)
[2024-06-12] MEDS: DIVALPROEX SODIUM SPRINKLE 125 MG CAP.DR PO (09:23)
[2024-06-12] MEDS: TAMSULOSIN HCL 0.4 MG CAPSULE PO (09:23)
[2024-06-12 09:26] VITALS: PULSE 97
[2024-06-12] MEDS: METOPROLOL SUCCINATE EXT REL 25 MG TABCR PO (09:26)
--- NOTE | 2024-06-12 12:21 | PM.DS ---
DS: Admitting Diagnosis Discharge Date 06/12 Admitting Diagnosis fall DS: Discharge Diagnosis Discharge Diagnosis (1) Fall: Code(s): W19.XXXA - Unspecified fall, initial encounter Status: Acute Assessment and Plan: fall precautions - PT/OT ordered (2) Acute UTI: Code(s): N39.0 - Urinary tract infection, site not specified Status: Acute Assessment and Plan: started on Rocephin - hopper care cultures in progress - 06/10- urine culture is negative so far if still periods of confusion- will consider repeating CT head - Flomax was started on 06/09 (3) Dementia: Code(s): F03.90 - Unspecified dementia, unspecified severity, without behavioral disturbance, psychotic disturbance, mood disturbance, and anxiety Status: Acute Assessment and Plan: continue memantine continue divalproex Plan final dx: dementia, fall. UA negative. pt is back to baseline- ready for discharge on eliquis- will continue for dvt prophylaxis -advance diet as tolerated once bedside swallow is done DS: Summary Hospital Course Hospital Course: Interval history: Narrative retrieved from H/P; This is a 68-year-old male with past medical history significant for advanced dementia patient lives at [facility] Patient was found sitting on the floor was brought to the emergency room for evaluation preliminary workup has been Significant for urinalysis with 6-10 WBCs present, a CT of the head showed scattered intravenous gas. History has been obtained upon reviewing medical records ,emergency room physician and daughter who is at bedside patient is demented unable to give any history. Patient has been placed in observation for further evaluation management and treatment 06/08- pt is seen and examined. pt is pleasantly confused but that is his baseline as has vascular dementia. denies any pain, n/v. 06/09 uneventful night but this am is restless, trying to climb out of bed, agitated. Will order ativan x 1 iv for concern of safety and close monitoring for mental and resp. status. 06/10- Ativan was ordered yesterday but was not administered as pt settled down. Will try to avoid agitations meds and utilize redirection, ambulation, distraction if possible. 06/11 pt is seen and examined. He is up in the chair - he is alert but somewhat confused- his baseline. Anticipate discharge back tomorrow 06/12- alert, still somewhat confused but his baseline. Denies pain Time Spent with Patient Time attestation: Total time spent providing and/or coordinating discharge services: Exam Narrative: patient is laying in a stretcher Const: General: comfortable, no acute distress, well developed, alert, awake, average body habitus and thin Nutritional Appearance: average body habitus and thin Orientation/consciousness: Other orientation findings ( demented) Other: consfused but cooperative- his baseline HENMT: Head: normal to inspection, normocephalic and atraumatic Ears: hearing grossly normal bilaterally Face/Nose/Sinus: normal facial exam Face and sinus: normal facial exam Eyes: General: appearance normal, both eyes and all related structures Pupils: Equal, round and reactive pupils present EOM: EOMs intact bilaterally Neck: Neck: full ROM, no lymphadenopathy and no JVD Thyroid: thyroid normal Lymphatic: no lymphadenopathy noted Resp: Effort & Inspection: normal respiratory effort and able to speak in complete sentences Auscultation: clear to auscultation bilaterally Cardio: Jugular venous distension: no JVD Rate: regular rate Rhythm: regular rhythm Heart sounds: S1 normal heart sound present and S2 normal heart sound present : General: Yes deferred Skin: Rashes: no rashes Wounds: no wounds Neuro: General: moves all extremities, no focal motor deficits and CN's II-XI intact bilaterally Cranial nerves: Yes CN's II-XII intact bilaterally and Yes Equal, round and r
--- NOTE | 2024-06-12 14:34 | PC.NURSE ---
RN called to give facility report. No answer at this this time.
[2024-06-12 14:49] VITALS: BP 100/64; PULSE 78; RESP 18; TEMP 36.8; O2SAT 99
--- NOTE | 2024-06-18 14:04 | PC.NURSE ---
Call from [facility]. They need a signed copy of the flomax. Prescription printed, signed and faxed to facility.
== END 2024-06-12 15:30 | DRG 689 ==
LOC: ANHED 19:43 → ANH3MEDSUR 20:46 → ANH3MED 22:10
PROVIDERS: Admitting Provider Internal Medicine; Emergency Provider Emergency Medicine; PCP Nurse Practitioner Family; Visit Provider Nurse Practitioner
DX: N39.0 Urinary tract infection, site not specified (principal); T80.0XXA Air embolism following infusion, transfusion and therapeutic injection, initial encounter; F03.90 Unspecified dementia, unspecified severity, without behavioral disturbance, psychotic disturbance, mood disturbance, and anxiety; W19.XXXA Unspecified fall, initial encounter; Z20.822 Contact with and (suspected) exposure to COVID-19; Z87.891 Personal history of nicotine dependence; Z79.01 Long term (current) use of anticoagulants
CPT/HCPCS: 36415; 70450; 71045; 80053; 80307; 81001; 83605; 83690; 83735; 83880; 84100; 84443; 84484; 85025; 85055; 85730; 87040; 87086; 87637; 93005; 96361; 96365; 97161; 97165; 99285; A9270; G0378; J0696; J7030; J7120

== ENCOUNTER 2024-10-03 03:33 | Emergency (ER) | payer MEDICARE, OTHER, SELFPAY ==
--- NOTE | ~2024-10-03 | XR_ITS ---
CORRECTED REPORT moved images and report to [id number] from [id number] [facility] [place] 10/06/24 This report was recreated on 10/06/24. Original report was TION SALES SENIOR EXECUTIVE Portable chest x-ray Comparison: 06/07/2024 Clinical History: Status post fall Findings: Lungs are clear, without focal consolidation or pleural effusion. No pneumothorax. Cardiomediastinal silhouette is stable, status post valve placement. Bones and soft tissues are unremarkable. Impression: No acute abnormality. Reviewed, dictated and finalized at location M. TION SALES SENIOR EXECUTIVE MTDD Impression: No acute abnormality.
--- NOTE | ~2024-10-03 | CT_ITS ---
CORRECTED REPORT moved images and report to [id number] from [id number] [facility] [place] This report was recreated on 10/06/24. Original report was ILE SHAPER OPERATOR Noncontrast CT scan of the cervical spine Technique: Multiple contiguous axial [address] images of the cervical spine were obtained and reconstructed in 2D sagittal and coronal planes on the acquisition scanner. Dose reduction technique was used on this scan by utilizing automated exposure control, adjustment of the mA and/or kV according to patient size. The dose-length product (DLP) was 612.56 mGy-cm. Clinical History: Pain COMPARISON: 05/13/2024 Findings: No fractures or dislocations. There is moderate to advanced degenerative disc narrowing throughout the cervical spine. There is multilevel uncovertebral degenerative change in the cervical spine. Probable mild left neural foraminal narrowing at C3-C4. There is disc osteophyte complex at C5-C6 with mild canal stenosis and significant bilateral neural foraminal narrowing. There is disc osteophyte complex at C6-C7, mild canal stenosis and significant bilateral neural foraminal narrowing. No prevertebral soft tissue swelling. Impression: No fracture or subluxation of the cervical spine. Degenerative spondylosis, as above, worst at C5-C6 and C6-C7. Reviewed, dictated and finalized at location M. ILE SHAPER OPERATOR MTDD Impression: No fracture or subluxation of the cervical spine. Degenerative spondylosis, as above, worst at C5-C6 and C6-C7.
--- NOTE | ~2024-10-03 | CT_ITS ---
CORRECTED REPORT moved images and report to [id number] from [id number] [facility] [place] 10/06/24 This report was recreated on 10/06/24. Original report was CHBOARD INSTALLER CT head without contrast Indication: Status post fall COMPARISON: 06/07/2024 Technique: Serial scans were obtained through the brain without the administration of contrast. Dose reduction technique was used on this scan by utilizing automated exposure control and iterative reconstruction technique. The dose-length product (DLP) was 756.67 mGy-cm. Findings: There is no evidence of intracranial hemorrhage, mass lesion, or acute infarct. The ventricles and subarachnoid spaces are dilated, consistent with moderate atrophy. Low attenuation regions are seen within the periventricular white matter bilaterally, likely representing changes from chronic microvascular ischemic disease. There is no evidence of edema, mass effect or midline shift. The visualized paranasal sinuses and mastoid air cells are clear. Impression: No intracranial hemorrhage, mass, or acute infarct. Atrophy and chronic white matter changes, as above. Reviewed, dictated and finalized at location M. CHBOARD INSTALLER MTDD Impression: No intracranial hemorrhage, mass, or acute infarct. Atrophy and chronic white matter changes, as above.
--- NOTE | ~2024-10-03 | XR_ITS ---
CORRECTED REPORT moved images and report to [id number] from [id number] [facility] [place] 10/06/24 This report was recreated on 10/06/24. Original report was DING CLEANING SUPERVISOR AP and lateral views of the right tibia/fibula Clinical History: Trauma Findings: No acute fracture or dislocation is seen. Osseous alignment is anatomic. Joint spaces are preserved without significant erosive or degenerative change. Soft tissues are unremarkable. Impression: Unremarkable right tib-fib radiographs. Reviewed, dictated and finalized at location M. DING CLEANING SUPERVISOR MTDD Impression: Unremarkable right tib-fib radiographs.
--- NOTE | ~2024-10-03 | XR_ITS ---
AP view of the pelvis and AP and lateral views of the right hip Clinical history: Pain Findings: No acute fracture or dislocation is seen. Osseous alignment is anatomic. Bilateral hip and SI joint spaces are preserved. Soft tissues are unremarkable. Impression: No significant abnormality is seen. Reviewed, dictated and finalized at [facility]. LITY PLANNER Impression: No significant abnormality is seen.
[2024-10-03 08:36] LABS: Red Blood Count 3.49 M/mm3 (4.6-6.20); White Blood Count 8.7 K/mm3 (4.5-10.0)
[2024-10-03 08:37] LABS: Basophils Percent Auto 0.2 % (0.2-1.2); Eosinophils Percent Auto 0.7 % (0-4.4); Hematocrit 33.5 % (42.0-52.0); Hemoglobin 11.3 g/dL (14.0-18.0); Immature Granulocyte Percent A 0.3 % (0-0.5); Lymphocytes Percent Auto 13.4 % (18.3-44.2); Mean Corpuscular HGB Conc 33.7 g/dl (32-36); Mean Corpuscular Hemoglobin 32.4 pg (26-34); Mean Platelet Volume 11.1 fl (7.4-10.4); Monocytes Percent Auto 8.4 % (2.6-8.5); Platelet Count Result 131 k/mm3 (150-375); Red Cell Distribution Width 13.1 % (11.5-14.5)
[2024-10-03 08:38] LABS: Eosinophils Absolute Auto 0.1 K/mm3 (0-0.3); Immature Granulocyte Absolute 0.03 K/mm3 (0.00-0.031); Lymphocytes Absolute Auto 1.16 K/mm3 (0.9-3.2); Monocytes Absolute Auto 0.7 K/mm3 (0.1-0.6); Neutrophils Absolute Auto 6.7 K/mm3 (1.3-6.7)
--- NOTE | 2024-10-03 08:49 | ED.FALL ---
HPI - Fall General Chief Complaint: Fall Stated Complaint: fall Time Seen by Provider: 10/03/24 08:13 Source: patient, family (daughter), EMS and RN notes reviewed Mode of arrival: EMS Limitations: dementia History of Present Illness HPI Narrative: Patient presents after a fall. He was found on the ground. He has no complaints. A&Ox1 which is his baseline. On Elliquis for Afib. Heart rate was initially in the 160s on arrival. On metoprolol 25mg per review of senior care documentation. Denies any pain including no abdominal pain. No history of heart failure. Related Data Home Medications ?Medication ?Instructions ?Recorded ?Confirmed ?Last Taken ?Type Adults Multivitamin 1 tab-cap PO DAILY 06/07/24 06/07/24 Unknown History apixaban 5 mg tablet (Eliquis) 5 mg PO BID 06/07/24 06/07/24 Unknown History cyanocobalamin (vitamin B-12) 1,000 mcg PO .ALYCIADTHURFRI 06/07/24 06/07/24 Unknown History 1,000 mcg tablet divalproex 125 mg capsule,delayed 125 mg PO TID 06/07/24 06/07/24 Unknown History release sprinkle donepezil 10 mg tablet 10 mg PO HS 06/07/24 06/07/24 Unknown History ezetimibe 10 mg tablet 10 mg PO DAILY 06/07/24 06/07/24 Unknown History levetiracetam 500 mg tablet 500 mg PO Q12H 06/07/24 06/07/24 Unknown History lisinopril 2.5 mg tablet 2.5 mg PO DAILY 06/07/24 06/07/24 Unknown History memantine 28 mg capsule 28 mg PO HS 06/07/24 06/07/24 Unknown History sprinkle,extended release 24hr metoprolol succinate 25 mg 25 mg PO HS 06/07/24 06/07/24 Unknown History tablet,extended release 24 hr metoprolol succinate 25 mg 50 mg PO DAILY 06/07/24 06/07/24 Unknown History tablet,extended release 24 hr rosuvastatin 40 mg tablet 40 mg PO HS 06/07/24 06/07/24 Unknown History sertraline 100 mg tablet 100 mg PO DAILY 06/07/24 06/07/24 Unknown History sertraline 50 mg tablet 50 mg PO DAILY 06/07/24 06/07/24 Unknown History Allergies Allergy/AdvReac Type Severity Reaction Status Date / Time Penicillins Allergy Unknown Verified 06/12/24 09:49 [facility] Past Medical History Medical History Chronic kidney disease, unspecified Anemia, unspecified Alzheimer's disease, unspecified Hemangioma unspecified site Aneurysm of unspecified site Chronic atrial fibrillation, unspecified Atherosclerotic heart disease of [place] coronary artery without angina pectoris Anxiety disorder Major depressive disorder Epilepsy Essential (primary) hypertension Hyperlipidemia Dementia Family History Family History (Updated 06/07/24 @ 22:17 by Megan Munoz RN) Other Unknown family medical history Social History Social History Smoking status: Former smoker Tobacco type: cigarettes Alcohol intake: never Substance use: never Substance use type: does not use Additional living arrangements comments: [facility] concerns: No Exam Narrative: GENERAL: Well-appearing, well-nourished, and in no acute distress. HEAD: Normocephalic, atraumatic. EYES: Non injected, non icteric ENT: Nares clear, no rhinorrhea or epistaxis. NECK: Supple. CHEST: Non labored. No respiratory distress. HEART: Irregularly IRegular rate and rhythm. . ABDOMEN: Soft, nondistended. EXTREMITIES: Normal range of motion. 2+ bilateral lower extremity edema. SKIN: Warm, dry, no rash. NEURO: No focal deficits. Alert and oriented to self. PSYCH: Normal mood and affect. Course Vital Signs Vital signs: Vital Signs Temperature 98.4 F 10/03/24 08:57 Pulse Rate 91 10/03/24 08:57 Respiratory Rate 18 10/03/24 08:57 Blood Pressure 103/76 10/03/24 08:57 Pulse Oximetry 97 10/03/24 08:57 Oxygen Delivery Room Air 10/03/24 08:57 Temperature 98.4 F 10/03/24 08:57 Pulse Rate 97 10/03/24 10:40 Respiratory Rate 13 10/03/24 10:40 Blood Pressure 103/94 H 10/03/24 10:40 Pulse Oximetry 97 10/03/24 10:40 Oxygen Delivery Room Air 10/03/24 08:57 MDM - Fall MDM Narrative Medical decision making narrative: Patient presents after a fall. He was found on the ground. In Memory Care. No complaints from the patient. In the ED he is afebrile with vital signs within normal limits. He is initially rate controlled and then Patient is noted to be in atrial fibrillation with rapid ventricular response. Because he takes metoprolol at baseline , a 1 time IV push of this medication is ordered but he does rate convert again just prior to this is given. He does complain of some R leg pain though believe this is due to indentation that is later seen from his leg resting against the railing. Later, complains of hip pain during movement/transfer per RN. Labs are obtained during EMR downtime. see scanned documents. Work up generally unremarkable except pro BNP is elevated and patient does not have a history of heart failure on senior care documenation or per daughter. Vital signs within normal limits at approximately 9am. Discussed extensively with patient's daughter. Discussed the possibility of an observation for further work up however, though shared decision making, also reasonable to give a dose of diuretic and prescribe a short course and follow up outpatient, especially because not hypoxic, hemodynamically unable, in respiratory distress, or with concerning findings on chest xray. Elects to proceed with the latter, especially given the risk of being in a new setting given his dementia (potential ) and the possible exposure to hospital pathogens. Stable for discharge and daughter feels comfortable transporting back to facility. Lab Data Attestation: I reviewed the patient's lab results. Lab results narrative: Normocytic anemia and thrombocytopenia, both previously seen and stable/chronic. Labs: Lab Results 10/03/24 Range/Units 05:18 NT-Pro-B Natriuret Pep 4740 H (19.9-100) pg/mL Imaging Data Radiologist's impression: IMPRESSION No fracture or subluxation of the cervical spine. Degenerative spondylosis, as above, worst at C5-C6 and C6-C7. HEAD CT No intracranial hemorrhage, mass, or acute infarct. Atrophy and chronic white matter changes, as above. CXR Impression: No acute abnormality. Impression: Unremarkable right tib-fib radiographs. Impression: No significant abnormality is seen. ECG Data EKG #1: Attestation: I personally reviewed and interpreted this ECG as follows: ECG completion date: 10/03/24 ECG completion time: 03:44 Prior ECG tracings: available for review (06/07/2024 atrial fibrillation. ) Interpretation: Atrial fibrillation with rapid ventricular response at a rate of 134 beats per minute. QRS 86. QT/QTC 150/229 (?). Nonspecific T-wave abnormalities in lateral precordial leads V4 through V6. Discharge Plan Discharge Clinical Impression: Fall, Normocytic anemia, Thrombocytopenia, Acute heart failure, Bilateral leg edema Patient Disposition: NH Half-Way/Asst Living Condition: Stable Instructions: Antibiotic Form, Heart Failure (DC), Alzheimer Disease (DC), Fall Prevention for Older Adults (ED), Leg Edema (ED), Anemia (ED), Thrombocytopenia (ED) Additional Instructions: Trial the diuretic ( water pill ) for the leg edema and concern for acute heart failure (although the chest xray appeared clear). Follow-up with your primary care provider. The contact information for a workers' compensation claims supervisor is listed below. Return to the emergency department with any new or worsening symptoms. Patient Language: Nepali Prescriptions: New furosemide 20 mg tablet 20 mg PO DAILY Qty: 14 0RF No Action Adults Multivitamin 1 tab-cap PO DAILY levetiracetam 500 mg tablet 500 mg PO Q12H donepezil 10 mg tablet 10 mg PO HS sertraline 100 mg tablet 100 mg PO DAILY Rx Instructions: total 150 cyanocobalamin (vitamin B-12) 1,000 mcg Tablet 1,000 mcg PO .ALYCIADTHUELLARI metoprolol succinate 25 mg tablet extended release 24 hr 25 mg PO HS metoprolol succinate 25 mg tablet extended release 24 hr 50 mg PO DAILY sertraline 50 mg tablet 50 mg PO DAILY Rx Instructions: total 150 divalproex 125 mg capsule, delayed rel sprinkle 125 mg PO TID lisinopril 2.5 mg tablet 2.5 mg PO DAILY ezetimibe 10 mg tablet 10 mg PO DAILY rosuvastatin 40 mg tablet 40 mg PO HS Eliquis 5 mg tablet 5 mg PO BID memantine 28 mg capsule,sprinkle,ER 24hr 28 mg PO HS tamsulosin 0.4 mg Capsule 0.4 mg PO QAM Qty: 90 0RF Follow-up/Referrals: Ramses Petersen [Other] Brandon,Joceline Hughes APRN [Primary Care Provider] - Stand Alone Forms: Mcfp Discharge Time of Disposition: 09:55
[2024-10-03 08:57] VITALS: BP 103/76; PULSE 91; RESP 18; TEMP 36.9; O2SAT 97
[2024-10-03 09:34] LABS: NT Pro B Type Natriuretic Pept 4740 pg/mL (19.9-100)
[2024-10-03 09:41] LABS: Alanine Aminotransferase 30 U/L (6-50); Albumin Level 3.4 g/dL (3.5-5.1); Alkaline Phosphatase 59 U/L (38-126); Anion Gap 3 mmol/L (4-12); Aspartate Amino Transferase 53 U/L (17-59); Bilirubin,Total 0.5 mg/dL (0.2-1.3); Blood Urea Nitrogen 23 mg/dL (9-20); Calcium 8.5 mg/dL (8.4-10.2); Carbon Dioxide 30 mmol/L (22-30); Chloride 104 mmol/L (98-107); Estimated Glomerular Filt Rate > 60; Glucose 116 mg/dL (65-110); Potassium 4.3 mmol/L (3.4-5.0); Sodium 137 mmol/L (137-145); Total Protein 6.1 g/dL (6.3-8.2)
[2024-10-03] MEDS: FUROSEMIDE INJ 40 MG/4 ML VIAL IV PUSH (10:14)
--- NOTE | 2024-10-03 10:15 | PC.NURSE ---
Report called to Ember Reis at [facility].
[2024-10-03 10:40] VITALS: BP 103/94; PULSE 97; RESP 13; O2SAT 97
== END 2024-10-03 10:44 ==
PROVIDERS: Emergency Provider Student in an Organized Health Care Education/Training Program; PCP Nurse Practitioner Family
DX: D64.9 Anemia, unspecified (principal); D69.6 Thrombocytopenia, unspecified; I48.20 Chronic atrial fibrillation, unspecified; I50.9 Heart failure, unspecified; R60.9 Edema, unspecified; W18.30XA Fall on same level, unspecified, initial encounter; Z79.01 Long term (current) use of anticoagulants; N18.9 Chronic kidney disease, unspecified; E78.5 Hyperlipidemia, unspecified; G40.909 Epilepsy, unspecified, not intractable, without status epilepticus; Z87.891 Personal history of nicotine dependence; I13.0 Hypertensive heart and chronic kidney disease with heart failure and stage 1 through stage 4 chronic kidney disease, or unspecified chronic kidney disease
CPT/HCPCS: 36415; 70450; 71045; 72125; 73502; 73590; 80053; 83880; 85025; 96374; 99284; J1940

== ENCOUNTER 2024-11-19 08:58 | Emergency (ER) | payer MEDICARE, OTHER, SELFPAY ==
--- NOTE | ~2024-11-19 | CT_ITS ---
EXAMINATION: CT abdomen pelvis wo con DATE: 11/19/2024 15:17 INDICATION: gross hematuria TECHNIQUE: Computed tomography (CT) of the abdomen and pelvis was performed without intravenous contr ast. Automated exposure control and iterative reconstruction technique were employed. The dose-length product was 351.10 mGy-cm. COMPARISON: None. FINDINGS: Lower thorax: Mitral and coronary artery calcification. Liver: Normal. Biliary/Gallbladder: Cholelithiasis. No inflammatory change. No bile duct dilation. Pancreas: No mass or duct dilation. Spleen: Normal. Adrenals:No mass. Kidneys: No suspicious mass, obstructing stone, or hydronephrosis. 4 mm nonobstructing left upper vidya e calcification. Punctate nonobstructing calcification in the left lower pole. GI tract: No small or large bowel dilation. Appendix not confidently identified. Mesentery/Peritoneum: No ascites, mass, or free air. Retroperitoneum: No mass. Atherosclerotic calcifications of intra-abdominal arterial vessels. Pelvis: Small bubble of gas in the nondependent bladder lumen. No bladder wall thickening or debris. Prostatomegaly. Soft Tissues: Soft tissues and body wall unremarkable. Bones: Chronic appearing vertebral body height loss at L3-L5. IMPRESSION: Cholelithiasis without inflammatory change. Nonobstructing left nephrolithiasis. Gas within the bladder lumen, correlate with history of recent catheterization and urinalysis. L3-L5 compression fractures, likely chronic unless accompanied by history of trauma, or acute pain/te nderness. Reviewed, dictated and finalized at location [facility] IMPRESSION: Cholelithiasis without inflammatory change. Nonobstructing left nephrolithiasis. Gas within the bladder lumen, correlate with history of recent catheterization and urinalysis. L3-L5 compression fractures, likely chronic unless accompanied by history of tr auma, or acute pain/tenderness.
--- OUTSIDE RECORDS SUMMARY | 2024-11-19 09:01 | XMS_ITS | Clinical Summary ---
Author Organization [facility] Address [address] [place] [address]. [place] [address] [place] [address] Care Team Providers Care Lab Rn Name Role Phone Unavailable Primary Care Provider Unavailabl e Allergies Active Allergy Reactions Criticality Noted Date Comments Penicillin V Rash Low 04/17/2019 Penicillins Rash Low 09/03/2022 Medications ELIQUIS 5 MG tablet Take 1 tablet (5 mg total) by mouth 2 (two) times daily. 1 Active rosuvastatin 40 MG tablet Take 1 tablet (40 mg total) by mouth nightly at bedtime. at bedtime 1 Active sertraline 100 MG tablet TAKE 1 AND 1/2 TABLETS BY MOUTH EVERY DAY 1 Active Multiple Vitamins-Minerals (MULTIVITAMIN ADULT, MINERALS, OR) Take 1 tablet by mouth daily. Active vitamin B-12 (CYANOCOBALAMIN) 1000 mcg tablet Take 1 tablet (1,000 mcg total) by mouth. Taking M-F Active divalproex DR sprinkle (DEPAKOTE SPRINKLE) 125 MG capsule 2 Active levETIRAcetam (KEPPRA) 500 MG tablet 2 Active memantine ER (NAMENDA XR) 28 MG 24 hr capsule Take 1 capsule (28 mg total) by mouth daily. 3 Active metoprolol succinate ER (TOPROL-XL) 50 MG 24 hr tablet Take 1 tablet (50 mg total) by mouth daily. One tablet in AM, 1/2 tablet in PM 3 Active lisinopril (PRINIVIL) 5 MG tablet Take 0.5 tablets (2.5 mg total) by mouth daily. 2 Active econazole nitrate (SPECTAZOLE) 1 % cream Apply topically daily. 3 Active donepezil (ARICEPT) 10 MG Tab Take 1 tablet (10 mg total) by mouth nightly at bedtime. 2 Active ezetimibe (ZETIA) 10 MG tabletIndications: Hyperlipidemia, unspecified hyperlipidemia type Take 1 tablet (10 mg total) by mouth daily. 90 tablet 3 3 Active Active Problems Problem Noted Date Diagnosed Date Neurocognitive disorder 08/09/2023 Chronic a-fib ([facility]) 08/09/2023 Chronic HFrEF (heart failure with reduced ejection fraction) ([facility]) 08/09/2023 Hypertension 04/17/2019 Hyperlipidemia 04/17/2019 Anxiety and depression 04/17/2019 Epilepsy ([facility]) 04/17/2019 Immunizations Name Administration Dates Next Due Dtap (Acel-Immune) 05/09/2014 Fluzone High Dose - >Age 65 (Prefilled Syringe) 08/09/2023 Influenza (Generic) 10/11/2022,11/08/2020,2018 PFIZER COVID-19 (ORIGINAL FO RMULATION, PURPLE CAP) mRNA, LNP-S, PF, 30 MCG/0.3 ML DOSE 07/22/2022 Pneumococcal (Pneumovax 23) 10/11/2022 Shingrix 11/01/2019,08/21/2019 Family History Relation Status Comments Father Mother Social History Tobacco Use Types Packs/Day Years Used Date Smoking Tobacco: Former Cigarettes 1 30 1 976 - 2006 Smokeless Tobacco: Never Tobacco Cessation:Counseling Given: No Alcohol Use Standard Drinks/Week Comments Not Currently 0 (1 standard drink = 0.6 oz pur e alcohol) PHQ-2 Answer Date Recorded Patient Health Questionnaire-2 Score 0 08/09/2023 Sex and Gender Information Value Date Recorded Sex Assigned at Not on file Legal Sex Male 8:30 PM CDT Gender Identity Not on file Sexual Orientation Not on file Last Filed Vital Signs Vital Sign Reading Time Taken Comments Blood Pressure 99/75 11/17/2023 10:48 AM MILL CONTROLLER Pulse 80 11/17/2023 10:48 AM MILL CONTROLLER Temperature 36 ??C (96.8 ??F) 11/17/2023 10:48 AM MILL CONTROLLER Respiratory Rate 18 11/17/2023 10:48 AM MILL CONTROLLER Oxygen Saturation 99% 11/17/2023 10:48 AM MILL CONTROLLER Inhaled Oxygen Concentration - - Weight 110.2 kg (243 lb) 11/17/2023 10:48 AM MILL CONTROLLER Height 190.5 cm (6' 3 ) 11/17/2023 10:48 AM MILL CONTROLLER Body Mass Index 30.37 11/17/2023 10:48 AM MILL CONTROLLER Plan of Treatment Health Maintenance Due Date Last Done Comments Hepatitis C 1974 RSV Immunization or 60+ Years (1 - Risk 60-74 years 1-dose series) 2016 AAA SCREENING 2021 Annual Medicare Wellness Visit 2021 Pneumococcal Vaccine: 65+ Years (2 of 2 - PCV) 10/11/2023 10/11/2022 DTaP, Tdap and Td Vaccines (2 - Tdap) 05/09/2024 05/09/2014 COVID-19 Vaccine (3 - season) 2024 07/22/2022, 03/22/2021 Influenza Adult (#1) 2024 08/09/2023, 10/11/2022, 11/08/2020, Additional history exists PHQ-2 (Physician [place]) 08/09/2024 08/09/2023 PHQ-2 (Physician [place]) 10/25/2024 08/09/2023 Colorectal Cancer Screening Colonoscopy (10 Years) 10/29/2038 Postponed from 1956 (Patient Refused) Zoster Vaccines Completed 11/01/2019, 08/21/2019 Meningococcal B Vaccine Aged Out No l onger eligible based on patient's age to complete this topic Meningococcal Vaccine Aged Out No rony jamie eligible based on patient's age to complete this topic RSV Immunizations Under 20 Months Aged Out No longer eligible based on patient's age to complete this topic Insurance MEDICARE [facility] Advance Directives Documents on File Type Date Recorded Patient Production Engineer Expl anation Advance Directives and Livin g Will 12/08/2023 6:24 AM POLST Power of Pot Lining Supervisor 08/10/2023 2:44 PM [facility][1]
--- OUTSIDE RECORDS SUMMARY | 2024-11-19 09:01 | XMS_ITS | Patient Health Summary ---
Author Organization [facility] Address [address] [place] [address] Care Team Providers Care Farm Technician Name Role Phone Sarah Lowery MD Primary Care Provider [phone] [facility],non-owned Affiliates and Associated Physician Practices is amultiple site organization consisting of ambulatory clinics and hospital sitesin [place], [place], [place] and [place]. This disclosure is being madepursuant to the Care Everywhere program and may not contain all information available regarding this patient. Last updated 18.[facility] Allergies * Penicillins(Rash,Other) -Medium Criticality Medications * Be aware that medications may not be up to date on this document. Alwaysverify current medications with the patient. * apixaban (Eliquis) 5 MG tablet(Started 05/26/2022) 1 tablet(s), Oral, bid, 180 tablet(s), 3, 3, Route to Pharmacy Electronically, [id number], [id number], 192, cm, 04/24/2022 1112, Height, 109.09, kg, 04/24/2022 1119, Weight * divalproex sprinkle (Depakote Sprinkle) 125 MG capsule(Started 10/26/2022) Take 1 (one) capsule by mouth 2 times daily * donepezil (Aricept) 10 MG tablet(Started 10/13/2022) 1 (one) tablet * sacubitril-valsartan (Entresto) 24-26 MG tablet(Started 09/07/2022) 1 tablet(s), Oral, bid, 60 tablet(s), Tablet(s), 0 * metoprolol succinate XL 24hr (Toprol XL) 25 MG tablet(Started 10/26/2022) Take 1 (one) tablet by mouth 2 times daily * ezetimibe (Zetia) 10 MG tablet(Started 08/04/2022) Take 1 (one) tablet by mouth once daily * levETIRAcetam (Keppra) 500 MG tablet(Started 09/01/2022) * rosuvastatin (Crestor) 40 MG tablet(Started 10/02/2022) 1 tablet(s), Oral, HS, 90 tablet(s), 0, Route to Pharmacy Electronically, [facility] #[id number], [id number], 192, cm, 09/25/2022 1010, Height, 108.45, kg, 09/25/2022 1010, Weight * sertraline (Zoloft) 100 MG tablet(Started 10/02/2022) Take 1.5 (one and one-half) tablets by mouth once daily Social History Tobacco Use Types Packs/Day Years Used Date Smoking Tobacco: Former Cigarettes Smokeless Tobacco: Never Tobacco Cessation:Counseling Given: Not Answered Sex and Gender Information Value Date Recorded Sex Assigned at Not on file Gender Identity Not on file Sexual Orientation Not on file Last Filed Vital Signs Vital Sign Reading Time Taken Comments Blood Pressure 124/82 11/09/2022 12:05 PM SHAKER SCREEN OPERATOR Pulse 96 11/09/2022 12:05 PM SHAKER SCREEN OPERATOR Temperature - - Respiratory Rate - - Oxygen Saturation 96% 11/09/2022 12:05 PM SHAKER SCREEN OPERATOR Inhaled Oxygen Concentration - - Weight 104.3 kg (230 lb) 11/09/2022 12:05 PM SHAKER SCREEN OPERATOR Height 193 cm (6' 4 ) 11/09/2022 12:05 PM SHAKER SCREEN OPERATOR Body Mass Index 28 11/09/2022 12:05 PM SHAKER SCREEN OPERATOR Procedures * LAB RESULTS ORDER(Performed 10/26/2022) * IMAGING/RADIOLOGY/XRAY RESULTS ORDER(Performed 10/25/2022) * IMAGING/RADIOLOGY/XRAY RESULTS ORDER(Performed 10/24/2022) Results * LAB RESULTS ORDER (10/26/2022) 10/26/2022 Narrative 10/26/2022 Ordered by an unspecified provider. Scanned Document LAB - THERAPEUTIC DR GROVE MONITORING ORDERABLES * IMAGING RADIOLOGY XRAY RESULTS ORDER (10/25/2022) Only the most recent of2 resultswithin the time period is included. Anatomical Region Laterality Modality Other 10/25/2022 Narrative 10/25/2022 Ordered by an unspecified provider. Scanned Document IMAGING Care Teams Farm Technician Relationship Specialty Start Date End Date Sarah Lowery MD [address] [place] [address] [address] [place] [address] PCP - General Internal Medicine 11/11/22
--- OUTSIDE RECORDS SUMMARY | 2024-11-19 09:01 | XMS_ITS | Clinical Summary ---
Author Organization [facility] Address [address] [place] [address] Phone Care Team Providers Care Operating Room Rn Name Role Phone Barry Yang MD Primary Care Provider [phone] Allergies Active Allergy Reactions Criticality Noted Date Comments Penicillins Unknown 06/14/2012 Medications OXCARBAZEPINE (TRILEPTAL ORAL) Take by mouth 2 times daily. Active ezetimibe (ZETIA) 10 mg Oral tablet Take 10 mg by mouth daily. Active ESCITALOPRAM OXALATE (LEXAPRO ORAL) Take by mouth daily. Active Family History Medical History Relation Name Comments Colon Cancer Paternal Grandfather Relation Name Status Comments Paternal Grandfather Social History Tobacco Use Types Packs/Day Years Used Date Smoking Tobacco: Former Alcohol Use Standard Drinks/Week Comments No 0 (1 standard drink = 0.6 oz pur e alcohol) Sex and Gender Information Value Date Recorded Sex Assigned at Not on file Legal Sex Male 4:00 AM PATRON ATTENDANT Gender Identity Not on file Sexual Orientation Not on file Occupation Industry Job Start Date Job End Date Not on file Not on file Not on file Not on file Last Filed Vital Signs Vital Sign Reading Time Taken Comments Blood Pressure 123/77 07/21/2012 9:32 AM CDT Pulse 55 07/21/2012 9:32 AM CDT Temperature 36.3 ??C (97.3 ??F) 07/21/2012 9:20 AM CD T Respiratory Rate 18 07/21/2012 9:32 AM CDT Oxygen Saturation 94% 07/21/2012 9:32 AM CDT Inhaled Oxygen Concentration - - Weight 112 kg (247 lb) 07/21/2012 8:42 AM CDT Height 188 cm (6' 2 ) 07/21/2012 8:42 AM CDT Body Mass Index 31.71 07/21/2012 8:42 AM CDT Plan of Treatment Health Maintenance Due Date Last Done Comments DTAP/TDAP/TD VACCINES (1 - Tdap) 1975 FIT-DNA Q 3 years 2001 FIT/FOBT Q 1 year 2001 Flex Sig/CT Colonography Q 5 years 2001 PNEUMOCOCCAL VACCINE 65+ YEARS (1 of 1 - PCV) 08/19/20 06 ZOSTER VACCINE (1 of 2) 2006 COLORECTAL SCREENING 07/21/2022 07/21/2012 Colorectal Cancer Screening 07/21/2022 INFLUENZA VACCINE (#1) 2024 RSV VACCINE (60+ or ) (1 - 1-dose 75+ series) 2031 Insurance Advance Directives For more information, please contact: [phone] * Full Code (Latest Code Status on File) Date Activated Date Inactivated Comments 07/21/2012 8:27 AM 07/21/2012 11:59 AM Care Teams Operating Room Rn Relationship Specialty Start Date End Date Barry Yang MD [address] [place] [address] PCP - General Family Practice 06/14/12
--- OUTSIDE RECORDS SUMMARY | 2024-11-19 09:01 | XMS_ITS | Patient Health Record ---
Author Organization [facility] Address [address] [place] [address] Care Team Providers Care City Constable Name Role Phone Sarah Kolb Primary Care Provider Un available BereketkianShaylav Unavailable [phone] Allergies Allergen (clinical drug ingredient) Drug/Non Drug Allergy documented on EMR Reaction Allergy Type Onset Date Status Substance with penicillin structure and antibacterial mechanism of action (substance) Penicillins (uncoded) Unknown Allergy Active Reason For Referral No Information Medications Medication SIG (Take, Route, Frequency, Duration) Notes Start Date End Date Status Carvedilol 12.5 MG 1 tablet with food Orally Twice a day for 30 day(s) Active Ezetimibe Active Eliquis Active Sertraline HCl Activ e amLODIPine Besylate Active Rosuvastatin Calcium Active levETIRAcetam Active OTC/Vitamins ASA, Vit B12, MVI Active Divalproex Sodium Ac tive Social History Tobacco Use: Social History Observation Description Date Details (start date - stop date) Former Smoker NA - NA Tobacco Use/Smoking Question Answer Notes Are you a former smoker How long has it been since you last smoked? 6-12 months Problems Problem Type SNOMED Code ICD Code Onset Dates Problem Status W/U Status Risk Notes Problem 13661554 Iron deficiency anemia, unspecified (D50.9) Active confirmed Problem 56402144 Duodenal ulcer, unspecified as acute or chronic, without hemorrhage or perforation (K26.9) Active confirmed Problem 2604045 Gastritis, unspecified, without bleeding (K29.70) Active confirmed Problem 79089332 Weight loss (R63.4) Active confirmed Problem 755103337 Anemia, unspecified type (D64.9) Active confirmed Would like to schedule upper endoscopy and colonoscopy to exclude blood loss through the GI tract and malignancy. He has never undergone endoscopy before. It has been eight years since his last colonoscopy. Problem 946554979 Chronic anticoagulation (Z79.01) Active confirmed Problem 443515227 Liver lesion (K76.9) Active confirmed Problem 840415770 Hepatic lesion (K76.9) Active confirmed Recent cardiac evaluation (myocardial perfusion scan) revealed low-density lesions in the right hepatic lobe caliber up to 4.4 cm which was partially exophytic and more dense concerning for neoplasia/met astasis. MRI and labs to include alpha-fetopro tein level are pending, which were ordered by Dr. Lema. Plan Of Treatment Pending Test Test Name Order Date Colon and Scope 09/12/2020 CT Abdomen/Pelvis w/ IV & Oral Contrast 11/19/2020 Insurance Providers Payer Name Payer Address Payer Phone Subscriber Number Group Number Insured Name Patient Relationship to Insured Coverage Start Date Coverage End Date Medicare E2 [address] [address] [place] [address] [id number] Clayton Kessler Self - patient is the insured [employer] [address] [place] [address] [phone] [id number] Clayton Kessler Self - patient is the insured Medical (General) History Medical History History ICD Code Anemia Ulcer Liver Disease Generalized Anxiety Disorder Hypertension Seizure Disorder Mitral Valve Prolapse Mixed Hyperlipodemia Mild Cognitive Impairment Cornary Artery Disease Hyponatremia Migraines Hearing Loss Sleep Apnea Asthma Atrial Fibrillation Surgical History Surgery Date(Month/Year) Endoscopy 10/2020 Colonoscopy Date Unknown Cardiac Catheterization Mitral Valve Repair O-Ring Tonsillectomy
--- OUTSIDE RECORDS SUMMARY | 2024-11-19 09:01 | XMS_ITS | Clinical Summary ---
Author Organization [facility] Address [address] [place] [address] Care Team Providers Care Ultrasonic Welding Machine Operator Name Role Phone Sarah Lowery MD Primary Care Provider [phone] Source Comments [facility],non-owned Affiliates and Associated Physician Practices is amultiple site organization consisting of ambulatory clinics and hospital sitesin [place], [place], [place] and [place]. This disclosure is being madepursuant to the Care Everywhere program and may not contain all information available regarding this patient. Last updated 18.[facility] Allergies Active Allergy Reactions Criticality Noted Date Comments Penicillins Rash,Other Medium 06/14/2012 Medications * Be aware that medications may not be up to date on this document. Alwaysverify current medications with the patient. Medication Sig Dispensed Refills Start Date End Date Status apixaban (Eliquis) 5 MG tablet 1 tablet(s), Oral, bid, 180 tablet(s), 3, 3, Route to Pharmacy Electronically, [facility] #[id number], [id number], 192, cm, 04/24/2022 1112, Height, 109.09, kg, 04/24/2022 1119, Weight 05/26/2022 Active divalproex sprinkle (Depakote Sprinkle) 125 MG capsule Take 1 (one) capsule by mouth 2 times daily 10/26/2022 Active donepezil (Aricept) 10 MG tablet 1 (one) tablet 10/13/2022 Active sacubitril-valsartan (Entresto) 24-26 MG tablet 1 tablet(s), Oral, bid, 60 tablet(s), Tablet(s), 0 09/07/2022 Active metoprolol succinate XL 24hr (Toprol XL) 25 MG tablet Take 1 (one) tablet by mouth 2 times daily 10/26/2022 Active ezetimibe (Zetia) 10 MG tablet Take 1 (one) tablet by mouth once daily 08/04/2022 Active levETIRAcetam (Keppra) 500 MG tablet 09/01/2022 Active rosuvastatin (Crestor) 40 MG tablet 1 tablet(s), Oral, HS, 90 tablet(s), 0, Route to Pharmacy Electronically, [facility] #[id number], [id number], 192, cm, 09/25/2022 1010, Height, 108.45, kg, 09/25/2022 1010, Weight 10/02/2022 Active sertraline (Zoloft) 100 MG tablet Take 1.5 (one and one-half) tablets by mouth once daily 10/02/2022 Active Family History Medical History Relation Name Comments CAD (Coronary Artery Disease) Brother CVA Brother CAD (Coronary Artery Disease) Mother Relation Name Status Comments Brother Mother Other No family histo ry to report Social History Tobacco Use Types Packs/Day Years Used Date Smoking Tobacco: Former Cigarettes Smokeless Tobacco: Never Tobacco Cessation:Counseling Given: Not Answered Sex and Gender Information Value Date Recorded Sex Assigned at Not on file Gender Identity Not on file Sexual Orientation Not on file Last Filed Vital Signs Vital Sign Reading Time Taken Comments Blood Pressure 124/82 11/09/2022 12:05 PM MANAGER MARKETING SALES Pulse 96 11/09/2022 12:05 PM MANAGER MARKETING SALES Temperature - - Respiratory Rate - - Oxygen Saturation 96% 11/09/2022 12:05 PM MANAGER MARKETING SALES Inhaled Oxygen Concentration - - Weight 104.3 kg (230 lb) 11/09/2022 12:05 PM MANAGER MARKETING SALES Height 193 cm (6' 4 ) 11/09/2022 12:05 PM MANAGER MARKETING SALES Body Mass Index 28 11/09/2022 12:05 PM MANAGER MARKETING SALES Plan of Treatment Health Maintenance Due Date Last Done Comments PAUL (AGES 45-75) - COL ON CA SCREENING 1956 COLON MONITORING 1956 COLONOSCOPY - COLON CA SCREENING 1956 CT COLONOGRAPHY - COLON CA SCREENING 1955 Colorectal Cancer Screening 1956 FIT - COLON CA SCREENING 1956 FLEX SIG - COLON CA SCREENING 1955 MEDICARE AWV ? 12 MONTHS 1955 HEPATITIS C SCREENING 08/15/1974 DTAP/TDAP/TD VACCINES (1 - Tdap) 1975 PNEUMOCOCCAL VACCINE 50+ (1 of 1 - PCV) 2006 ZOSTER VACCINE (1 of 2) 2006 AAA SCREENING 2021 SCREENING FOR DIABETES 11/09/2022 COVID-19 VACCINE (2 - 2023-2 5 season) 2024 07/22/2022 INFLUENZA VACCINE (#1) 2024 2, 11/08/2020, 08/25/2019 DEPRESSION SCREENING 10/25/2024 Respiratory Syncytial Virus (RSV) Vaccine Pt: or over 60 yrs (1 - 1-dose 75+ series) 2031 HEPATITIS B VACCINE Aged Out No longe r eligible based on patient's age to complete this topic HIB VACCINE Aged Out No longer eligi ble based on patient's age to complete this topic HPV VACCINE Aged Out No longer eligi ble based on patient's age to complete this topic MENINGOCOCCAL (Group B) VACCINE Aged Out No longer eligible b ased on patient's age to complete this topic MENINGOCOCCAL VACCINE Aged Out No rony jamie eligible based on patient's age to complete this topic Care Teams Ultrasonic Welding Machine Operator Relationship Specialty Start Date End Date Sarah Lowery MD [address] [place] [address] [address] [place] [address] PCP - General Internal Medicine 11/11/22
--- OUTSIDE RECORDS SUMMARY | 2024-11-19 09:01 | XMS_ITS | Referral Summary ---
Author Organization [facility] Address [address] [place] [address] Care Team Providers Care Plumbing Technician Name Role Phone Sarah Lowery MD Primary Care Provider [phone] Source Comments [facility],non-owned Affiliates and Associated Physician Practices is amultiple site organization consisting of ambulatory clinics and hospital sitesin [place], [place], [place] and [place]. This disclosure is being madepursuant to the Care Everywhere program and may not contain all information available regarding this patient. Last updated 18.[facility] Allergies Active Allergy Reactions Criticality Noted Date Comments Penicillins Rash,Other Medium 06/14/2012 Medications * Be aware that medications may not be up to date on this document. Alwaysverify current medications with the patient. Medication Sig Dispensed Refills Start Date End Date Status apixaban (Eliquis) 5 MG tablet 1 tablet(s), Oral, bid, 180 tablet(s), 3, 3, Route to Pharmacy Electronically, [facility] #[id number], [id number], 192, cm, 04/24/2022 1112, Height, 109.09, kg, [...] 90 tablet(s), 0, Route to Pharmacy Electronically, [facility] #[id number], [id number], 192, cm, 09/25/2022 1010, Height, 108.45, kg, 09/25/2022 1010, Weight 10/02/2022 Active sertraline (Zoloft) 100 MG tablet Take 1.5 (one and one-half) tablets by mouth once daily 10/02/2022 Active Social History Tobacco Use Types Packs/Day Years Used Date Smoking Tobacco: Former Cigarettes Smokeless Tobacco: Never Tobacco Cessation:Counseling Given: Not Answered Sex and Gender Information Value Date Recorded Sex Assigned at Not on file Gender Identity Not on file Sexual Orientation Not on file Last Filed Vital Signs Vital Sign Reading Time Taken Comments Blood Pressure 124/82 11/09/2022 12:05 PM LIBRARY TECHNOLOGY INSTRUCTOR Pulse 96 11/09/2022 12:05 PM LIBRARY TECHNOLOGY INSTRUCTOR Temperature - - Respiratory Rate - - Oxygen Saturation 96% 11/09/2022 12:05 PM LIBRARY TECHNOLOGY INSTRUCTOR Inhaled Oxygen Concentration - - Weight 104.3 kg (230 lb) 11/09/2022 12:05 PM LIBRARY TECHNOLOGY INSTRUCTOR Height 193 cm (6' 4 ) 11/09/2022 12:05 PM LIBRARY TECHNOLOGY INSTRUCTOR Body Mass Index 28 11/09/2022 12:05 PM LIBRARY TECHNOLOGY INSTRUCTOR Plan of Treatment Not on file Care Teams Plumbing Technician Relationship Specialty Start Date End Date Sarah Lowery MD [address] [place] [address] PCP - General Internal Medicine 11/11/22
[2024-11-19 09:21] VITALS: BP 102/68; PULSE 102; RESP 17; TEMP 36.4; O2SAT 97
[2024-11-19 13:49] VITALS: BP 101/75; PULSE 91; O2SAT 100
--- OUTSIDE RECORDS SUMMARY | 2024-11-19 14:02 | XMS_ITS ---
Author Organization [facility] Address [facility] [place] [address] Care Team Providers Care Shipping Agent Name Role Phone Sonya Del Cid MD Primary Care Provider Unavail Augusto Karimi Unavailable [phone] REASON FOR VISIT Tele Appt Social History Sex Assigned At : Social History Observation Description Sex Assigned At Male Encounters Encounter Location Date Provider Diagnosis [place] [address] [facility] [address] [place] [address] 11/01/2024 Augusto Nagel Plan Of Treatment No Information Progress Notes * BRITTANY SOLOMON IDOB: (69 yo M)Acc No.[id number]:11/01/2024 Patient:?BRITTANY SOLOMON I :1955???Age:69 Y???Sex:Male Address:[address], [place], [address] * true * Date:? Generated for Printi ng/Faindug/eTransmitting on:?11/19/2024 09:00 AM SALES PROJECT COORDINATOR
--- OUTSIDE RECORDS SUMMARY | 2024-11-19 14:02 | XMS_ITS | Clinical Summary ---
Author Organization [facility] Address [address] [place] [address]. [place] [address] [place] [address] Care Team Providers Care Acquisitions Assistant Name Role Phone Unavailable Primary Care Provider [...] Diagnosed Date Neurocognitive disorder 08/09/2023 Chronic a-fib ([facility]) 08/09/2023 Chronic HFrEF (heart failure with reduced ejection fraction) ([facility]) 08/09/2023 Hypertension 04/17/2019 Hyperlipidemia 04/17/2019 Anxiety and depression 04/17/2019 Epilepsy ([facility]) 04/17/2019 Immunizations Name Administration Dates [...] Comments Blood Pressure 99/75 11/17/2023 10:48 AM IT TELECOM TECHNICIAN Pulse 80 11/17/2023 10:48 AM IT TELECOM TECHNICIAN Temperature 36 ??C (96.8 ??F) 11/17/2023 10:48 AM IT TELECOM TECHNICIAN Respiratory Rate 18 11/17/2023 10:48 AM IT TELECOM TECHNICIAN Oxygen Saturation 99% 11/17/2023 10:48 AM IT TELECOM TECHNICIAN Inhaled Oxygen Concentration - - Weight 110.2 kg (243 lb) 11/17/2023 10:48 AM IT TELECOM TECHNICIAN Height 190.5 cm (6' 3 ) 11/17/2023 10:48 AM IT TELECOM TECHNICIAN Body Mass Index 30.37 11/17/2023 10:48 AM IT TELECOM TECHNICIAN Plan of Treatment Health Maintenance Due Date [...] 10/11/2022, 11/08/2020, Additional history exists PHQ-2 (Physician [place]) 08/09/2024 08/09/2023 PHQ-2 (Physician [place]) 10/25/2024 08/09/2023 Colorectal Cancer Screening Colonoscopy (10 [...] age to complete this topic Insurance MEDICARE [facility] Advance Directives Documents on File Type Date Recorded Patient Blood Collector Expl anation Advance Directives and Livin g Will 12/08/2023 6:24 AM POLST Power of Master [employer] 08/10/2023 2:44 PM [facility]
--- OUTSIDE RECORDS SUMMARY | 2024-11-19 14:03 | XMS_ITS ---
Author Organization [facility] Records Management Address [address] [place] [address] Care Team Providers Care Clerk Rating Name Role Phone Nehemias DAVIES, Sonya Primary Care Provider Unavail able Augusto Nagel Unavailable [phone] REASON FOR VISIT 6 month f/u Medications Medication SIG (Take, Route, Frequency, Duration) Notes Start Date End Date Status Eliquis 5 MG Oral 11/19/2023 Active QUEtiapine Fumarate 50 MG 1 tablet at bedtime Orally Once a day for 30 days 09/25/2024 Active Lisinopril 2.5 MG Oral 11/19/2023 A ctive Rosuvastatin Calcium 40 MG Oral 11/19/2023 Active Vitamin B12 *Pick strength-form from [employer] for eRX* 11/19/2023 Active Memantine HCl ER 28 MG Oral 11/19/2023 Active Iron 325 mg (65 mg iron) Oral *Pick strength-form from [employer] for eRX* 11/19/2023 Active Ezetimibe 10 MG Oral 11/19/2023 Act radha Econazole Nitrate 1 % External 11/19/2023 Active Sertraline HCl 100 MG Oral 11/19/2023 Active levETIRAcetam 500 MG Oral 11/19/2023 Active Depakote Sprinkles 125 MG Oral 11/19/2023 Active Donepezil HCl 10 MG Oral 11/19/2023 Active Lisinopril 5 MG Oral 11/19/2023 Act radha Metoprolol Succinate ER 50 MG Oral 11/19/2023 Active Clindamycin HCl 150 MG Oral 11/19/2023 Active Nystatin 236844 UNIT/ML Mouth/Throat 11/19/2023 Active Divalproex Sodium 125 MG 2 capsules Oral Twice a day for 30 days 11/19/2023 Active methylPREDNISolone 4 MG Oral 11/19/2023 Active Social History Tobacco Use: Social History Observation Description Date Details (start date - stop date) Former Smoker NA - NA Sex Assigned At : Social History Observation Description Sex Assigned At Male Tobacco Control (Standard) Question Answer Notes Tobacco use: Former smoker How long has it been since you last smoked? Justin ter than 10 years Encounters Encounter Location Date Provider Diagnosis [facility] [address] [place] [address] 09/25/2024 Augusto Nagel Generalized anxiety disorder F41.1 ; Dementia in other diseases classified elsewhere, moderate, with other behavioral disturbance F02.B18 and Major depressive disorder, recurrent, mild F33.0 Assessments Encounter Date Diagnosis (ICD Code) Assessment Notes Treatment Notes Treatment Clinical Notes Section Notes 09/25/2024 Generalized anxiety disorder (ICD-10 - F41.1) sertraline 150mg daily 1. Dementia with agitation and aggression: - Patient has been experiencing increased agitation, aggression, and threatening behavior, particularly when staff approach him for care. This is a common issue in patients with dementia, especially in unfamiliar settings and with unfamiliar people. - Plan: Discontinue Depakote 125 mg three times a day. Start divalproex 250 mg twice a day to help manage agitation. Monitor patient's response to the medication change and consider increasing the dose if necessary. 2. Insomnia and excessive daytime sleepiness: - Patient has been experiencing difficulty sleeping at night and excessive sleepiness during the day. This pattern has been ongoing for the past year. - Plan: Change Seroquel (quetiapine) from 25 mg twice a day to 50 mg at bedtime to help improve sleep quality and reduce daytime sleepiness. Monitor patient's sleep patterns and adjust medication as needed. 3. Poor appetite and refusal of meals: - Patient has been refusing meals and medications, leading to the use of crushed medications and Boost nutrition supplements. - Plan: Continue to monitor patient's appetite and nutritional intake. Encourage the use of Boost supplements when meals are skipped. Ensure that new medications can be crushed or opened for easier administration. 4. Mobility issues and difficulty with balance: - Patient has been experiencing mobility issues and difficulty with balance, leading to the recommendation of a cane, which has not been effective. - Plan: Monitor patient's mobility and consider additional interventions or assistive devices as needed. Encourage staff to assist with mobility and ensure patient safety. 5. Follow-up and communication: - Plan: Schedule a telehealth follow-up appointment in one month to assess patient's response to medication changes and overall condition. Encourage communication between the memory care facility staff and the provider's office to address any concerns or issues that may arise. 09/25/2024 Dementia in other diseases classified elsewhere, moderate, with other behavioral disturbance (ICD-10 - F02.B18) on quetiapine 25mg bid by pcp, namenda 10mg bid, donepezil 10mg hs stop quetiapine 25mg bid, start quetiapine 50mg at bedtime, stop divalproex 125mg tid, start Divalproex 250mg twice a day 1. Dementia with agitation and aggression: - Patient has been experiencing increased agitation, aggression, and threatening behavior, particularly when staff approach him for care. This is a common issue in patients with dementia, especially in unfamiliar settings and with unfamiliar people. - Plan: Discontinue Depakote 125 mg three times a day. Start divalproex 250 mg twice a day to help manage agitation. Monitor patient's response to the medication change and consider increasing the dose if necessary. 2. Insomnia and excessive daytime sleepiness: - Patient has been experiencing difficulty sleeping at night and excessive sleepiness during the day. This pattern has been ongoing for the past year. - Plan: Change Seroquel (quetiapine) from 25 mg twice a day to 50 mg at bedtime to help improve sleep quality and reduce daytime sleepiness. Monitor patient's sleep patterns and adjust medication as needed. 3. Poor appetite and refusal of meals: - Patient has been refusing meals and medications, leading to the use of crushed medications and Boost nutrition supplements. - Plan: Continue to monitor patient's appetite and nutritional intake. Encourage the use of Boost supplements when meals are skipped. Ensure that new medications can be crushed or opened for easier administration. 4. Mobility issues and difficulty with balance: - Patient has been experiencing mobility issues and difficulty with balance, leading to the recommendation of a cane, which has not been effective. - Plan: Monitor patient's mobility and consider additional interventions or assistive devices as needed. Encourage staff to assist with mobility and ensure patient safety. 5. Follow-up and communication: - Plan: Schedule a telehealth follow-up appointment in one month to assess patient's response to medication changes and overall condition. Encourage communication between the memory care facility staff and the provider's office to address any concerns or issues that may arise. 09/25/2024 Major depressive disorder, recurrent, mild (ICD-10 - F33.0) 1. Dementia with agitation and aggression: - Patient has been experiencing increased agitation, aggression, and threatening behavior, particularly when staff approach him for care. This is a common issue in patients with dementia, especially in unfamiliar settings and with unfamiliar people. - Plan: Discontinue Depakote 125 mg three times a day. Start divalproex 250 mg twice a day to help manage agitation. Monitor patient's response to the medication change and consider increasing the dose if necessary. 2. Insomnia and excessive daytime sleepiness: - Patient has been experiencing difficulty sleeping at night and excessive sleepiness during the day. This pattern has been ongoing for the past year. - Plan: Change Seroquel (quetiapine) from 25 mg twice a day to 50 mg at bedtime to help improve sleep quality and reduce daytime sleepiness. Monitor patient's sleep patterns and adjust medication as needed. 3. Poor appetite and refusal of meals: - Patient has been refusing meals and medications, leading to the use of crushed medications and Boost nutrition supplements. - Plan: Continue to monitor patient's appetite and nutritional intake. Encourage the use of Boost supplements when meals are skipped. Ensure that new medications can be crushed or opened for easier administration. 4. Mobility issues and difficulty with balance: - Patient has been experiencing mobility issues and difficulty with balance, leading to the recommendation of a cane, which has not been effective. - Plan: Monitor patient's mobility and consider additional interventions or assistive devices as needed. Encourage staff to assist with mobility and ensure patient safety. 5. Follow-up and communication: - Plan: Schedule a telehealth follow-up appointment in one month to assess patient's response to medication changes and overall condition. Encourage communication between the memory care facility staff and the provider's office to address any concerns or issues that may arise. 09/25/2024 Other Plasma concentrations and pharmacologic effects of apixaban may be decreased by valproic acid. 1. Dementia with agitation and aggression: - Patient has been experiencing increased agitation, aggression, and threatening behavior, particularly when staff approach him for care. This is a common issue in patients with dementia, especially in unfamiliar settings and with unfamiliar people. - Plan: Discontinue Depakote 125 mg three times a day. Start divalproex 250 mg twice a day to help manage agitation. Monitor patient's response to the medication change and consider increasing the dose if necessary. 2. Insomnia and excessive daytime sleepiness: - Patient has been experiencing difficulty sleeping at night and excessive sleepiness during the day. This pattern has been ongoing for the past year. - Plan: Change Seroquel (quetiapine) from 25 mg twice a day to 50 mg at bedtime to help improve sleep quality and reduce daytime sleepiness. Monitor patient's sleep patterns and adjust medication as needed. 3. Poor appetite and refusal of meals: - Patient has been refusing meals and medications, leading to the use of crushed medications and Boost nutrition supplements. - Plan: Continue to monitor patient's appetite and nutritional intake. Encourage the use of Boost supplements when meals are skipped. Ensure that new medications can be crushed or opened for easier administration. 4. Mobility issues and difficulty with balance: - Patient has been experiencing mobility issues and difficulty with balance, leading to the recommendation of a cane, which has not been effective. - Plan: Monitor patient's mobility and consider additional interventions or assistive devices as needed. Encourage staff to assist with mobility and ensure patient safety. 5. Follow-up and communication: - Plan: Schedule a telehealth follow-up appointment in one month to assess patient's response to medication changes and overall condition. Encourage communication between the memory care facility staff and the provider's office to address any concerns or issues that may arise. Plan Of Treatment Medication Medication Name Sig Start Date Stop Date Notes QUEtiapine Fumarate 50 MG 1 tablet at be dtime Orally Once a day for 30 days 09/25/2024 Divalproex Sodium 125 MG 2 capsules Oral Twice a day for 30 days 11/19/2023 Treatment Notes Assessment Notes Generalized anxiety disorder sertraline 150mg daily Dementia in other diseases c lassified elsewhere, moderate, with other behavioral disturbance on quetiapine 25mg bid by pcp, namenda 10mg bid, donepezil 10mg hs stop quetiapine 25mg bid, start quetiapine 50mg at bedtime, stop divalproex 125mg tid, start Divalproex 250mg twice a day Other Plasma concentration s and pharmacologic effects of apixaban may be decreased by valproic acid. Next Appt Details Follow Up: 4 Weeks, Reason: f/u dementia with agitation Progress Notes * BRITTANY SOLOMON IDOB: [birth year] (69 yo M)Acc No.[id number]:09/25/2024 Patient:?BRITTANY SOLOMON I Provider:?SHANNAN FLOOD :[id number]???Age:69 Y???Sex:Male Rios e:09/25/2024 Address:[address] [place] [address], [facility] Pcp:Sonya Del Cid MD Check In:08:52 AM CSTCheck O ut:09:10 AM [employer] Subjective: * Chief Complaints: * ???6 month f/u * HPI: ???History of Presenting Problem:? Chief complaint - Increased agitation, irritability, and threatening behavior in memory care facility. the note is transcribed using speech recognition software. It is a reflection of a visit with the patient. It might have some inaccuracy, including medication names and transcribing errors, though efforts have been made to correct them. The patient's caregiver reports a significant increase in agitation and irritability, with the patient exhibiting threatening violent and aggressive behavior in the memory care facility. The patient has become socially withdrawn, choosing to remain in his room and not participating in meals. This agitation has worsened over the past week, with the patient resorting to cursing at staff members when they attempt to provide care or assist with changing. The patient has been experiencing mobility issues, characterized by instability while walking and difficulty using a cane. It's noted that these mobility problems began prior to the initiation of Seroquel treatment. The patient's sleep pattern has been irregular for the past year, marked by excessive daytime sleepiness and occasional poor sleep at night. The patient's appetite has significantly decreased, often resulting in refusal of meals and medications. To address this, the facility has prescribed Boost nutrition supplements to compensate for skipped meals. It's observed that the patient's eating habits improve when the caregiver is present. The caregiver reports no instances of hallucinations or paranoia in the patient. ?Depression?has become withdrawn.?Mood lability?was having agitation, threatening others.?Memory?dementia progressing. Cusses at staff, threatens to hit staff.?Appetite?has been refusing meals and medication at times, needs prompting by family.?Contributing Factors:?...?resides in memory care facility.? * Medical History:? * Medications:?TakingClindamyc in HCl 150 MG Capsule Oral Metoprolol Succinate ER 50 MG Tablet Extended Release 24 Hour Oral Divalproex Sodium 125 MG Capsule Delayed Release Sprinkle Oral methylPREDNISolone 4 MG Tablet Therapy Pack Oral Nystatin 965146 UNIT/ML Suspension Mouth/Throat Lisinopril 5 MG Tablet Oral Depakote Sprinkles 125 MG Capsule Delayed Release Sprinkle Oral Donepezil HCl 10 MG Tablet Oral Sertraline HCl 100 MG Tablet Oral levETIRAcetam 500 MG Tablet Oral Memantine HCl ER 28 MG Capsule Extended Release 24 Hour Oral Iron 325 mg (65 mg iron) Tablet Oral , Notes to Pharmacist: *Pick strength-form from [facility] for eRX*Ezetimibe 10 MG Tablet Oral Econazole Nitrate 1 % Cream External Rosuvastatin Calcium 40 MG Tablet Oral Vitamin B12 , Notes to Pharmacist: *Pick strength-form from [facility] for eRX*Eliquis 5 MG Tablet Oral Lisinopril 2.5 MG Tablet Oral Taking Clindamycin HCl 150 MG Capsule Oral Taking Metoprolol Succinate ER 50 MG Tablet Extended Release 24 Hour Oral Taking Divalproex Sodium 125 MG Capsule Delayed Release Sprinkle Oral Taking methylPREDNISolone 4 MG Tablet Therapy Pack Oral Taking Nystatin 555513 UNIT/ML Suspension Mouth/Throat Taking Lisinopril 5 MG Tablet Oral Taking Depakote Sprinkles 125 MG Capsule Delayed Release Sprinkle Oral Taking Donepezil HCl 10 MG Tablet Oral Taking Sertraline HCl 100 MG Tablet Oral Taking levETIRAcetam 500 MG Tablet Oral Taking Memantine HCl ER 28 MG Capsule Extended Release 24 Hour Oral Taking Iron 325 mg (65 mg iron) Tablet Oral , Notes to Pharmacist: *Pick strength-form from [facility] for eRX*Taking Ezetimibe 10 MG Tablet Oral Taking Econazole Nitrate 1 % Cream External Taking Rosuvastatin Calcium 40 MG Tablet Oral Taking Vitamin B12 , Notes to Pharmacist: *Pick strength-form from [employer] for eRX*Taking Eliquis 5 MG Tablet Oral Taking Lisinopril 2.5 MG Tablet Oral DiscontinuedDULoxetine HCl 30 MG Capsule Delayed Release Particles Oral Discontinued DULoxetine HCl 30 MG Capsule Delayed Release Particles Oral Objective: * Vitals:? * Examination: ???General Examination: ???- Mental Status Examination: - Patient exhibits agitation, particularly when staff interact for care, using violent language but no physical violence. - Patient is withdrawn, predominantly staying in his room and not engaging in communal activities like meals. - Patient displays confusion, as evidenced by misidentifying vehicles as familiar objects or people. - Daytime somnolence and disrupted nocturnal sleep patterns are noted. - No hallucinations or paranoia explicitly reported. - Physical Examination: - Mobility issues noted with instability and poor balance. Use of cane recommended but not effectively improving mobility. - Patient exhibits difficulty in positioning during sleep, with improper bed alignment. Assessment: * Assessment: 1.?Generalized anxiety disor efren - F41.1 (Primary)???2.?Dementia in other diseases classified elsewhere, moderate, with other behavioral disturbance - F02.B18???3.?Major depressive disorder, recurrent, mild - F33.0??? 1. Dementia with agitation and aggression:- Patient has been experiencing increased agitation, aggression, and threatening behavior, particularly when staff approach him for care. This is a common issue in patients with dementia, especially in unfamiliar settings and with unfamiliar people.- Plan: Discontinue Depakote 125 mg three times a day. Start divalproex 250 mg twice a day to help manage agitation. Monitor patient's response to the medication change and consider increasing the dose if necessary.2. Insomnia and excessive daytime sleepiness:- Patient has been experiencing difficulty sleeping at night and excessive sleepiness during the day. This pattern has been ongoing for the past year.- Plan: Change Seroquel (quetiapine) from 25 mg twice a day to 50 mg at bedtime to help improve sleep quality and reduce daytime sleepiness. Monitor patient's sleep patterns and adjust medication as needed.3. Poor appetite and refusal of meals:- Patient has been refusing meals and medications, leading to the use of crushed medications and Boost nutrition supplements.- Plan: Continue to monitor patient's appetite and nutritional intake. Encourage the use of Boost supplements when meals are skipped. Ensure that new medications can be crushed or opened for easier administration.4. Mobility issues and difficulty with balance:- Patient has been experiencing mobility issues and difficulty with balance, leading to the recommendation of a cane, which has not been effective.- Plan: Monitor patient's mobility and consider additional interventions or assistive devices as needed. Encourage staff to assist with mobility and ensure patient safety.5. Follow-up and communication:- Plan: Schedule a telehealth follow-up appointment in one month to assess patient's response to medication changes and overall condition. Encourage communication between the memory care facility staff and the provider's office to address any concerns or issues that may arise. Plan: * Treatment: 2.?Dementia in other disease s classified elsewhere, moderate, with other behavioral disturbance? Refill Divalproex Sodium Capsule Delayed Release Sprinkle, 125 MG, 2 capsules, Oral, Twice a day, 30 days, 120 Capsule, Refills 1;?Start QUEtiapine Fumarate Tablet, 50 MG, 1 tablet at bedtime, Orally, Once a day, 30 days, 30 Tablet, Refills 1.?? Notes: on quetiapine 25mg bid by pcp, namenda 10mg bid, donepezil 10mg hs stop quetiapine 25mg bid, start quetiapine 50mg at bedtime, stop divalproex 125mg tid, start Divalproex 250mg twice a day?? 3.?Others? Notes: Plasma concentrations and pharmacologic effects of apixaban may be decreased by valproic acid.?? * Procedure Codes:? * Follow Up:?4 Weeks (Reason: f/u dementia with agitation) * Billing Information: * Visit Code:? 74100 OFFICE OUTPATIENT VISIT 25 MINUTES DETAILED HISTORY AND EXAM/MODERATE MEDICAL DECISION MAKING. * Procedure Codes:? * [employer] Sign off status: Completed true * Provider:SHANNAN WALLACE Date:?11/2023 Generated for Jack escalante/John/Meenu on:?11/19/2024 09:01 AM [employer] History and Physical Notes * HPI (History of Present Illness) Category Sub-Category Detail Notes Category Not es History of Presenting Problem Depression has become withdrawn Mood lability was having agitation , threatening others Memory dementia progressing . Cusses at staff, threatens to hit staff Appetite has been refusing me als and medication at times, needs prompting by family Contributing Factors ... resides in memory ca re facility Examination Category Sub-Category Detail Notes Category Not es General Examination - Mental Status Examination: - Patient exhibits agitation, particularly when staff interact for care, using violent language but no physical violence. - Patient is withdrawn, predominantly staying in his room and not engaging in communal activities like meals. - Patient displays confusion, as evidenced by misidentifying vehicles as familiar objects or people. - Daytime somnolence and disrupted nocturnal sleep patterns are noted. - No hallucinations or paranoia explicitly reported. - Physical Examination: - Mobility issues noted with instability and poor balance. Use of cane recommended but not effectively improving mobility. - Patient exhibits difficulty in positioning during sleep, with improper bed alignment.
--- OUTSIDE RECORDS SUMMARY | 2024-11-19 14:03 | XMS_ITS | Patient Health Record ---
Author Organization [facility] [employer] Address [address] [place] [address] Care Team Providers Care Immigration Manager Name Role Phone Nehemias DAVIES, Sonya Primary Care Provider Unavail able Augusto Nagel Unavailable [phone] Migration, Provider Unavailable Unavailable Allergies Allergen (clinical drug ingredient) Drug/Non Drug Allergy documented on EMR Reaction Allergy Type Onset Date Status Substance with penicillin structure and antibacterial mechanism of action (substance) Penicillins Unknown Drug Allergy 11/19/2023 Active Reason For Referral No Information Medications Medication SIG (Take, Route, Frequency, Duration) Notes Start Date End Date Status QUEtiapine Fumarate 50 MG 1 tablet at bedtime Orally Once a day for 30 days Active Memantine HCl ER 28 MG Oral 11/19/2023 Active Divalproex Sodium 125 MG 2 capsules Oral Twice a day for 30 days Active levETIRAcetam 500 MG Oral 11/19/2023 Active Sertraline HCl 100 MG Oral 11/19/2023 Active Donepezil HCl 10 MG Oral 11/19/2023 Active Lisinopril 2.5 MG Oral 11/19/2023 A ctive Lisinopril 5 MG Oral 11/19/2023 Act radha Eliquis 5 MG Oral 11/19/2023 Active Nystatin 765797 UNIT/ML Mouth/Throat 11/19/2023 Active Vitamin B12 *Pick strength-form from [employer] for eRX* 11/19/2023 Active methylPREDNISolone 4 MG Oral 11/19/2023 Active Rosuvastatin Calcium 40 MG Oral 11/19/2023 Active Metoprolol Succinate ER 50 MG Oral 11/19/2023 Active Econazole Nitrate 1 % External 11/19/2023 Active Clindamycin HCl 150 MG Oral 11/19/2023 Active Ezetimibe 10 MG Oral 11/19/2023 Act radha Iron 325 mg (65 mg iron) Oral *Pick strength-form from [employer] for eRX* 11/19/2023 Active Immunizations Vaccine Route Administration Date Status Comme nts Pfizer [employer] Covid-19 Vac cine 2nd dose Unknown 03/22/2021 Administered Pfizer [employer] Covid-19 Vac cine 2nd dose Unknown 04/23/2021 Administered Pfizer [employer] Covid-19 Vac cine 2nd dose Unknown 10/28/2021 Administered Pfizer [employer] Covid-19 Vac cine 2nd dose Unknown 05/07/2022 Administered Pfizer [employer] Covid-19 Vac cine 2nd dose Unknown 07/22/2022 Administered Tdap Unknown 05/09/2014 Administered Zoster Unknown 08/21/2019 Administered Zoster Unknown 11/01/2019 Administered Social History Tobacco Use: Social History Observation Description Date Details (start date - stop date) Former Smoker NA - NA Sex Assigned At : Social History Observation Description Sex Assigned At Male Tobacco Control (Standard) Question Answer Notes Tobacco use: Former smoker How long has it been since you last smoked? Grea ter than 10 years Problems Problem Type SNOMED Code ICD Code Onset Dates Problem Status W/U Status Risk Notes Problem Mild recurrent major depression (16801741) Major depressive disorder, recurrent, mild (F33.0) Active confirmed Problem Generalized anxiety disorder (21054744) Generalized anxiety disorder (F41.1) Active confirmed Problem Dementia in other diseases classified elsewhere, moderate, with other behavioral disturbance (F02.B18) Active confirmed Vital Signs Heart Rate 105 /min 11/19/2023 Height-cm 190.50 cm 11/15/2024 Blood pressure diastolic 55 mm Hg 11/19/2023 Height 75.00 in 11/15/2024 Blood pressure systolic 85 mm Hg 11/19/2023 Encounters Encounter Location Date Provider Diagnosis [facility] [employer] [facility] [address] [facility] [address] [address] 11/15/2024 Augusto Nagel Generalized anxiety disorder F41.1 ; Dementia in other diseases classified elsewhere, moderate, with other behavioral disturbance F02.B18 and Major depressive disorder, recurrent, mild F33.0 [facility] [employer] [facility] [address] [facility] [address] [place] [address] 11/19/2023 Augusto Nagel Generalized anxiety disorder F41.1 ; Major depressive disorder, recurrent, mild F33.0 and Dementia in other diseases classified elsewhere, moderate, with other behavioral disturbance F02.B18 [place] [address] [facility] [address] [place] [address] 03/17/2024 [facility] [address] [facility] [address] [place] [address] 09/25/2024 Augustodalton Nagel Generalized anxiety disorder F41.1 ; Dementia in other diseases classified elsewhere, moderate, with other behavioral disturbance F02.B18 and Major depressive disorder, recurrent, mild F33.0 [facility] [address] [facility] [address] [place] [address] 12/31/2023 Provider [facility] [address] [address] 03/11/2024 Provider Migration [facility] [employer] [facility] [address] [address] 03/12/2024 Provider Migration [facility] [employer] [facility] [address] [address] 09/19/2024 [facility] [address] [address] 11/01/2024 Augusto Nagel Assessments Encounter Date Diagnosis (ICD Code) Assessment Notes Treatment Notes Treatment Clinical Notes Section Notes 11/19/2023 Major depressive disorder, recurrent, mild (ICD-10 - F33.0) 11/19/2023 Generalized anxiety disorder (ICD-10 - F41.1) 11/19/2023 Dementia in other diseases classified elsewhere, moderate, with other behavioral disturbance (ICD-10 - F02.B18) 09/25/2024 Generalized anxiety disorder (ICD-10 - F41.1) [...] any concerns or issues that may arise. 11/15/2024 Generalized anxiety disorder (ICD-10 - F41.1) sertraline 150mg daily 11/15/2024 Dementia in other diseases classified elsewhere, moderate, with other behavioral disturbance (ICD-10 - F02.B18) namenda 10mg bid, donepezil 10mg hs quetiapine 50mg at bedtime, Divalproex 250mg twice a day 09/25/2024 Major depressive disorder, recurrent, mild (ICD-10 [...] any concerns or issues that may arise. 11/15/2024 Major depressive disorder, recurrent, mild (ICD-10 - F33.0) 09/25/2024 Other Plasma concentrations and pharmacologic effects [...] issues that may arise. Plan Of Treatment No Information Insurance Providers Payer Name Payer Address Payer Phone Subscriber Number Group Number Insured Name Patient Relationship to Insured Coverage Start Date Coverage End Date [place] [address] [place] [address] [id number] BRITTANY SOLOMON Self - patient is the insured [employer] Medicare Supplement [address] [place] [address] [id number] BRITTANY SOLOMON Self - patient is the insured Medical (General) History Medical History History ICD Code Problems: Dementia with behavioral distu rbance Generalized anxiety disorder Mild recurrent major depression 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
--- OUTSIDE RECORDS SUMMARY | 2024-11-19 14:03 | XMS_ITS | Clinical Summary ---
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
--- OUTSIDE RECORDS SUMMARY | 2024-11-19 14:03 | XMS_ITS | Patient Health Summary ---
Author Organization [facility] Address [address] [place] [address] Care Team Providers Care Molecular Spectroscopist Name Role Phone Sarah Lowery MD Primary Care Provider [phone] Note from [facility],non-owned Affiliates and Associated Physician Practices is amultiple site organization consisting of ambulatory clinics and hospital sitesin [place], [place], [place] and [place]. This disclosure is being madepursuant to the Care Everywhere program and may not contain all information available regarding this patient. Last updated 18.[facility] Allergies * Penicillins(Rash,Other) -Medium Criticality Medications * Be aware that medications may not be up to date on this document. Alwaysverify current medications with the patient. * apixaban (Eliquis) 5 MG tablet(Started 05/26/2022) 1 tablet(s), Oral, bid, 180 tablet(s), 3, 3, Route to Pharmacy Electronically, [id number], [id number], 192, cm, 04/24/2022 1112, Height, 109.09, kg, [...] 90 tablet(s), 0, Route to Pharmacy Electronically, [facility] #[id number], [id number], 192, cm, 09/25/2022 1010, Height, 108.45, kg, [...] Blood Pressure 124/82 11/09/2022 12:05 PM MANAGER ASSESSMENT Pulse 96 11/09/2022 12:05 PM MANAGER ASSESSMENT Temperature - - Respiratory Rate - - Oxygen Saturation 96% 11/09/2022 12:05 PM MANAGER ASSESSMENT Inhaled Oxygen Concentration - - Weight 104.3 kg (230 lb) 11/09/2022 12:05 PM MANAGER ASSESSMENT Height 193 cm (6' 4 ) 11/09/2022 12:05 PM MANAGER ASSESSMENT Body Mass Index 28 11/09/2022 12:05 PM MANAGER ASSESSMENT Procedures * LAB RESULTS ORDER(Performed 10/26/2022) * [...] unspecified provider. Scanned Document IMAGING Care Teams Molecular Spectroscopist Relationship Specialty Start Date End Date Sarah Lowery MD [address] [place] [address] [address] [place] [address] PCP - General Internal Medicine 11/11/22
--- OUTSIDE RECORDS SUMMARY | 2024-11-19 14:03 | XMS_ITS | Clinical Summary ---
Author Organization [facility] [employer] Address [address] [facility] [place] [address] Care Team Providers Care Hopper Feeder Name Role Phone Sarah Lowery MD Primary Care Provider [phone] Source Comments [facility] [employer],non-owned Affiliates and Associated Physician Practices is amultiple site organization consisting of ambulatory clinics and hospital sitesin [place], [place], [place] and [place]. This disclosure is being madepursuant to the Care Everywhere program and may not contain all information available regarding this patient. Last updated 18.[facility] [employer] Allergies Active Allergy Reactions Criticality Noted Date Comments Penicillins Rash,Other Medium 06/14/2012 Medications * Be aware that medications may not be up to date on this document. Alwaysverify current medications with the patient. Medication Sig Dispensed Refills Start Date End Date Status apixaban (Eliquis) 5 MG tablet 1 tablet(s), Oral, bid, 180 tablet(s), 3, 3, Route to Pharmacy Electronically, [facility] #[id number], [id number], 192, cm, 04/24/2022 1112, Height, 109.09, kg, [...] 90 tablet(s), 0, Route to Pharmacy Electronically, [facility] #[id number], [id number], 192, cm, 09/25/2022 1010, Height, 108.45, kg, [...] Comments Blood Pressure 124/82 11/09/2022 12:05 PM PHOTO PRODUCER Pulse 96 11/09/2022 12:05 PM PHOTO PRODUCER Temperature - - Respiratory Rate - - Oxygen Saturation 96% 11/09/2022 12:05 PM PHOTO PRODUCER Inhaled Oxygen Concentration - - Weight 104.3 kg (230 lb) 11/09/2022 12:05 PM PHOTO PRODUCER Height 193 cm (6' 4 ) 11/09/2022 12:05 PM PHOTO PRODUCER Body Mass Index 28 11/09/2022 12:05 PM PHOTO PRODUCER Plan of Treatment Health Maintenance Due Date [...] age to complete this topic Care Teams Hopper Feeder Relationship Specialty Start Date End Date Sarah Lowery MD [address] [place] [address] [address] [place] [address] PCP - General Internal Medicine 11/11/22
--- OUTSIDE RECORDS SUMMARY | 2024-11-19 14:03 | XMS_ITS ---
Author Organization [facility] [employer] Address [address] [place] [address] Care Team Providers Care Administrative Court Justice Name Role Phone Nehemias DAVIES, Sonya Primary Care Provider Unavail able Augusto Nagel Unavailable [phone] Allergies Allergen (clinical drug ingredient) Drug/Non Drug Allergy documented on EMR Reaction Allergy Type Onset Date Status Substance with penicillin structure and antibacterial mechanism of action (substance) Penicillins Unknown Drug Allergy 11/19/2023 Active REASON FOR VISIT follow up medication eval Medications Medication SIG (Take, Route, Frequency, Duration) Notes Start Date End Date Status Vitamin B12 *Pick strength-form from [employer] for eRX* 11/19/2023 Active Rosuvastatin Calcium 40 MG Oral 11/19/2023 Active Econazole Nitrate 1 % External 11/19/2023 Active Lisinopril 2.5 MG Oral 11/19/2023 A ctive Eliquis 5 MG Oral 11/19/2023 Active Ezetimibe 10 MG Oral 11/19/2023 Act radha Iron 325 mg (65 mg iron) Oral *Pick strength-form from [employer] for eRX* 11/19/2023 Active Memantine HCl ER 28 MG Oral 11/19/2023 Active levETIRAcetam 500 MG Oral 11/19/2023 Active Sertraline HCl 100 MG Oral 11/19/2023 Active Nystatin 739805 UNIT/ML Mouth/Throat 11/19/2023 Active methylPREDNISolone 4 MG Oral 11/19/2023 Active Donepezil HCl 10 MG Oral 11/19/2023 Active Lisinopril 5 MG Oral 11/19/2023 Act radha Metoprolol Succinate ER 50 MG Oral 11/19/2023 Active Clindamycin HCl 150 MG Oral 11/19/2023 Active QUEtiapine Fumarate 50 MG 1 tablet at bedtime Orally Once a day for 30 days Active Divalproex Sodium 125 MG 2 capsules Oral Twice a day for 30 days Active Social History Tobacco Use: Social History [...] Problem Status W/U Status Risk Notes Problem Generalized anxiety disorder (05680361) Generalized anxiety disorder (F41.1) Active confirmed Problem Dementia in other diseases classified elsewhere, moderate, with other behavioral disturbance (F02.B18) Active confirmed Problem Mild recurrent major depression (91185074) Major depressive disorder, recurrent, mild (F33.0) Active confirmed Vital Signs Height 75.00 in 11/15/2024 Height-cm 190.50 cm 11/15/2024 Encounters Encounter Location Date Provider Diagnosis [facility] [employer] [facility] [address] [address] 11/15/2024 Augustodalton Suarezoza Generalized anxiety disorder F41.1 ; Dementia in other diseases classified elsewhere, moderate, with other behavioral disturbance F02.B18 and Major depressive disorder, recurrent, mild F33.0 Assessments Encounter Date Diagnosis (ICD Code) Assessment Notes Treatment Notes Treatment Clinical Notes Section Notes 11/15/2024 Generalized anxiety disorder (ICD-10 - F41.1) sertraline 150mg daily 11/15/2024 Dementia in other diseases classified elsewhere, moderate, with other behavioral disturbance (ICD-10 - F02.B18) namenda 10mg bid, donepezil 10mg hs quetiapine 50mg at bedtime, Divalproex 250mg twice a day 11/15/2024 Major depressive disorder, recurrent, mild (ICD-10 - F33.0) Plan Of Treatment Medication Medication Name Sig Start Date Stop Date Notes QUEtiapine Fumarate 50 MG 1 tablet at be dtime Orally Once a day for 30 days Divalproex Sodium 125 MG 2 capsules Oral Twice a day for 30 days Treatment Notes Assessment Notes Generalized anxiety disorder sertraline 150mg daily Dementia in other diseases c lassified elsewhere, moderate, with other behavioral disturbance namenda 10mg bid, donepezil 10mg hs quetiapine 50mg at bedtime, Divalproex 250mg twice a day Next Appt Details Follow Up: 3 Months, Reason: f/u dementia with agitation Progress Notes * BRITTANY SOLOMON IDOB: [birth year] (69 yo M)Acc No.[id number]:11/15/2024 Patient:?BRITTANY SOLOMON I Provider:?SHANNAN FLOOD :1955???Age:69 Y???Sex:Male Rios e:11/15/2024 Address:[address] [place] [address] Pcp:Sonya Del Cid MD Check In:02:01 PM CSTCheck O ut:02:08 PM DIATHERMY EQUIPMENT REPAIRER Subjective: * Chief Complaints: * ???1. Follow up medication e etrry. * HPI: ???History of Presenting Problem:?Depression?has become withdrawn.?Mood lability?was having agitation, threatening others.?Memory?dementia progressing. Cusses at staff, threatens to hit staff.?Appetite?has been refusing meals and medication at times, needs prompting by family.?Contributing Factors:?...?resides in memory care facility.? * Medical History:?Problems: D ementia with behavioral disturbance, Generalized anxiety disorder, Mild recurrent major depression, Primary degenerative dementia of the Alzheimer type, senile onset, with behavioral disturbance, ,. * Medications:?Taking Clindamy fady HCl 150 MG Capsule Oral , Taking Metoprolol Succinate ER 50 MG Tablet Extended Release 24 Hour Oral , Taking methylPREDNISolone 4 MG Tablet Therapy Pack Oral , Taking Nystatin 914921 UNIT/ML Suspension Mouth/Throat , Taking Lisinopril 5 MG Tablet Oral , Taking Donepezil HCl 10 MG Tablet Oral , Taking Sertraline HCl 100 MG Tablet Oral , Taking levETIRAcetam 500 MG Tablet Oral , Taking Memantine HCl ER 28 MG Capsule Extended Release 24 Hour Oral , Taking Iron 325 mg (65 mg iron) Tablet Oral , Notes to Pharmacist: *Pick strength-form from [facility] for eRX*, Taking Ezetimibe 10 MG Tablet Oral , Taking Econazole Nitrate 1 % Cream External , Taking Rosuvastatin Calcium 40 MG Tablet Oral , Taking Vitamin B12 , Notes to Pharmacist: *Pick strength-form from [facility] for eRX*, Taking Eliquis 5 MG Tablet Oral , Taking Lisinopril 2.5 MG Tablet Oral , Taking Divalproex Sodium 125 MG Capsule Delayed Release Sprinkle 2 capsules Oral Twice a day , Taking QUEtiapine Fumarate 50 MG Tablet 1 tablet at bedtime Orally Once a day , Discontinued Depakote Sprinkles 125 MG Capsule Delayed Release Sprinkle Oral , Medication List reviewed and reconciled with the patient * Allergies:?Penicillins: Kenny rgy - Onset Date 11/19/2023. Objective: * Vitals:?Ht: 75.00 in, Ht-cm: 190.50 cm. * Examination: ???Psychiatry: ?Abnormal body movements:?none.?Attention:?poor attention.?Memory status:?forgetful.? Assessment: * Assessment: 1.?Generalized anxiety disor efren - F41.1 (Primary)???2.?Dementia in other diseases classified elsewhere, moderate, with other behavioral disturbance - F02.B18???3.?Major depressive disorder, recurrent, mild - F33.0??? Plan: * Treatment: 2.?Dementia in other disease s classified elsewhere, moderate, with other behavioral disturbance? Refill Divalproex Sodium Capsule Delayed Release Sprinkle, 125 MG, 2 capsules, Oral, Twice a day, 30 days, 120 Capsule, Refills 3;?Start QUEtiapine Fumarate Tablet, 50 MG, 1 tablet at bedtime, Orally, Once a day, 30 days, 30 Tablet, Refills 3.?? Notes: namenda 10mg bid, donepezil 10mg hs quetiapine 50mg at bedtime, Divalproex 250mg twice a day?? * Follow Up:?3 Months (Reason: f/u dementia with agitation) * Billing Information: * Visit Code:? 47125 OFFICE OUTPATIENT VISIT 25 MINUTES DETAILED HISTORY AND EXAM/MODERATE MEDICAL DECISION MAKING. * Procedure Codes:? * Electronic signature of SHANNAN Sands on 11/19/2024 at 09:01 AM DIATHERMY EQUIPMENT REPAIRER Sign off status: Pending * Provider:SHANNAN WALLACE Date:? Generated for Jack escalante/John/Josésmitting on:?11/19/2024 09:01 AM DIATHERMY EQUIPMENT REPAIRER History and Physical Notes * HPI (History [...] Category Sub-Category Detail Notes Category Not es Psychiatry Abnormal body movements: none Attention: poor attention Memory status: forgetful
--- OUTSIDE RECORDS SUMMARY | 2024-11-19 14:03 | XMS_ITS | Referral Summary ---
Author Organization [facility] [employer] Address [address] [facility] [place] [address] Care Team Providers Care Dye House Hand Name Role Phone Sarah Lowery MD Primary Care Provider [phone] Source Comments [facility] [employer],non-owned Affiliates and Associated Physician Practices is amultiple site organization consisting of ambulatory clinics and hospital sitesin [place], [place], [place] and [place]. This disclosure is being madepursuant to the Care Everywhere program and may not contain all information available regarding this patient. Last updated 18.[facility] [employer] Allergies Active Allergy Reactions Criticality Noted Date Comments Penicillins Rash,Other Medium 06/14/2012 Medications * Be aware that medications may not be up to date on this document. Alwaysverify current medications with the patient. Medication Sig Dispensed Refills Start Date End Date Status apixaban (Eliquis) 5 MG tablet 1 tablet(s), Oral, bid, 180 tablet(s), 3, 3, Route to Pharmacy Electronically, [facility] #[id number], [id number], 192, cm, 04/24/2022 1112, Height, 109.09, kg, [...] 90 tablet(s), 0, Route to Pharmacy Electronically, [email or web address] #[id number], [id number], 192, cm, 09/25/2022 1010, Height, 108.45, kg, [...] Comments Blood Pressure 124/82 11/09/2022 12:05 PM LOADING MACHINE ADJUSTER Pulse 96 11/09/2022 12:05 PM LOADING MACHINE ADJUSTER Temperature - - Respiratory Rate - - Oxygen Saturation 96% 11/09/2022 12:05 PM LOADING MACHINE ADJUSTER Inhaled Oxygen Concentration - - Weight 104.3 kg (230 lb) 11/09/2022 12:05 PM LOADING MACHINE ADJUSTER Height 193 cm (6' 4 ) 11/09/2022 12:05 PM LOADING MACHINE ADJUSTER Body Mass Index 28 11/09/2022 12:05 PM LOADING MACHINE ADJUSTER Plan of Treatment Not on file Care Teams Dye House Hand Relationship Specialty Start Date End Date Sarah Lowery MD [address] [facility] [address] [place] [address] PCP - General Internal Medicine 11/11/22
--- NOTE | 2024-11-19 14:21 | ED.MALEGU ---
HPI - Male Genitourinary General Chief complaint: Urogenital-Male Stated complaint: bleeding from penis Time Seen by Provider: 11/19/24 13:40 History of Present Illness HPI Narrative: Patient history of dementia, presents here from [facility] with [facility] concerned about blood from urethra. Patient denies any complaints. Has no abdominal pain, nausea vomiting, back pain, no fevers or chills Related Data Home Medications ?Medication ?Instructions ?Recorded ?Confirmed ?Last Taken ?Type Adults Multivitamin 1 tab-cap PO DAILY 06/07/24 06/07/24 Unknown History apixaban 5 mg tablet (Eliquis) 5 mg PO BID 06/07/24 06/07/24 Unknown History cyanocobalamin (vitamin B-12) 1,000 mcg PO .ALYCIADTHURFRI 06/07/24 06/07/24 Unknown History 1,000 mcg tablet divalproex 125 mg capsule,delayed 125 mg PO TID 06/07/24 06/07/24 Unknown History release sprinkle donepezil 10 mg tablet 10 mg PO HS 06/07/24 06/07/24 Unknown History ezetimibe 10 mg tablet 10 mg PO DAILY 06/07/24 06/07/24 Unknown History levetiracetam 500 mg tablet 500 mg PO Q12H 06/07/24 06/07/24 Unknown History lisinopril 2.5 mg tablet 2.5 mg PO DAILY 06/07/24 06/07/24 Unknown History memantine 28 mg capsule 28 mg PO HS 06/07/24 06/07/24 Unknown History sprinkle,extended release 24hr metoprolol succinate 25 mg 25 mg PO HS 06/07/24 06/07/24 Unknown History tablet,extended release 24 hr metoprolol succinate 25 mg 50 mg PO DAILY 06/07/24 06/07/24 Unknown History tablet,extended release 24 hr rosuvastatin 40 mg tablet 40 mg PO HS 06/07/24 06/07/24 Unknown History sertraline 100 mg tablet 100 mg PO DAILY 06/07/24 06/07/24 Unknown History sertraline 50 mg tablet 50 mg PO DAILY 06/07/24 06/07/24 Unknown History Allergies Allergy/AdvReac Type Severity Reaction Status Date / Time Penicillins Allergy Unknown Verified 11/19/24 08:59 Review of Systems Review of Systems: All systems reviewed & are unremarkable except as noted in HPI and below PMFSH Past Medical History Medical History Chronic kidney disease, unspecified Anemia, unspecified Alzheimer's disease, unspecified Hemangioma unspecified site Aneurysm of unspecified site Chronic atrial fibrillation, unspecified Atherosclerotic heart disease of [place] coronary artery without angina pectoris Anxiety disorder Major depressive disorder Epilepsy Essential (primary) hypertension Hyperlipidemia Dementia Family History Family History (Updated 06/07/24 @ 22:17 by Megan Munoz RN) Other Unknown family medical history Social History Social History Smoking status: Former smoker Tobacco type: cigarettes Alcohol intake: never Substance use: never Substance use type: does not use Additional living arrangements comments: [facility] care concerns: No Exam Narrative: EXAMINATION OF ORGAN SYSTEMS/BODY AREAS: Constitutional: Vital signs per nursing GENERAL:[No acute distress, non-toxic appearing.] HEAD: Normal with no signs of head trauma. EYES: EOMI, conjunctiva normal ENT: Hearing grossly intact LUNGS: Nonlabored breathing. HEART: [Regular rate and rhythm] ABD: [Soft], [nontender to palpation], no flank tenderness EXT: Normal range of motion SKIN: [No rashes or lesions.] : Some bloody urine at meatus NEURO: [Alert. No gross focal sensory or strength deficits.] PSYCH: Normal affect; pleasantly demented Course Vital Signs Vital signs: Vital Signs Temperature 97.5 F L 11/19/24 09:21 Pulse Rate 102 H 11/19/24 09:21 Respiratory Rate 17 11/19/24 09:21 Blood Pressure 102/68 11/19/24 09:21 Pulse Oximetry 97 11/19/24 09:21 Oxygen Delivery Room Air 11/19/24 09:21 Temperature 98.2 F 11/19/24 16:11 Pulse Rate 103 H 11/19/24 16:11 Respiratory Rate 16 11/19/24 16:11 Blood Pressure 145/82 H 11/19/24 16:11 Pulse Oximetry 98 11/19/24 16:11 Oxygen Delivery Room Air 11/19/24 09:21 MDM - Male Genitourinary MDM Narrative Medical decision making narrative: Patient presents with hematuria. He is very well-appearing, denies any complaints, abdomen soft nontender, back nontender. There is some a blood in his urine, but he does not appear distended and has no urinary retention. UA +RBCs; CT noncon without acute abnormality; there are some nonobstructing stones in the kidney. Patient on re-evaluation is still smiling and in no distress. Stable for discharge with precautions and follow-up to Urology with return precautions if symptoms get worse especially if he cannot urinate or if he starts urinating more blood. Daughters at bedside agreeable to this plan Lab Data Labs: Lab Results 11/19/24 Range/Units 14:09 Urine Color Yellow (Yellow) Urine Appearance Clear (Clear) Urine pH 5.5 (5.0-9.0) Ur Specific [place] 1.023 (1.001-1.035) Urine Protein Negative (Negative) mg/dL Urine Glucose (UA) Negative (Negative) mg/dL Urine Ketones Trace H (Negative) mg/dL Ur Blood (Man) 2+ H (Negative) Urine Nitrate Negative (Negative) Urine Bilirubin Negative (Negative) Urine Urobilinogen 1.0 (<2.0) mg/dL Add Ur Microanalysis Reviewed Leukocyte Esterase Rfl Negative (Negative) HUMBERTO/UL Urine RBC 21-50 H (0-2) /hpf Urine WBC 0-5 (0-3) /hpf Ur Squamous Epith Cells None seen (Few) /hpf Urine Bacteria None seen /hpf Urine Casts 0-2 Discharge Plan Discharge Clinical Impression: Gross hematuria Patient Disposition: Home, Self-Care Condition: Stable Instructions: Hematuria (ED) Additional Instructions: Please follow-up with the urologist. If your symptoms get worse or you cannot urinate or anything else concerning, please come back to the emergency room. Patient Language: [place] Prescriptions: No Action Adults Multivitamin 1 tab-cap PO DAILY levetiracetam 500 mg tablet 500 mg PO Q12H donepezil 10 mg tablet 10 mg PO HS sertraline 100 mg tablet 100 mg PO DAILY Rx Instructions: total 150 cyanocobalamin (vitamin B-12) 1,000 mcg Tablet 1,000 mcg PO .AYAH metoprolol succinate 25 mg tablet extended release 24 hr 25 mg PO HS metoprolol succinate 25 mg tablet extended release 24 hr 50 mg PO DAILY sertraline 50 mg tablet 50 mg PO DAILY Rx Instructions: total 150 divalproex 125 mg capsule, delayed rel sprinkle 125 mg PO TID lisinopril 2.5 mg tablet 2.5 mg PO DAILY ezetimibe 10 mg tablet 10 mg PO DAILY rosuvastatin 40 mg tablet 40 mg PO HS Eliquis 5 mg tablet 5 mg PO BID memantine 28 mg capsule,sprinkle,ER 24hr 28 mg PO HS tamsulosin 0.4 mg Capsule 0.4 mg PO QAM Qty: 90 0RF furosemide 20 mg tablet 20 mg PO DAILY Qty: 14 0RF Follow-up/Referrals: Kwasi Graham MD [Physician] - 2 Days UNKNOWN,DOCTOR [Primary Care Provider] -
[2024-11-19 14:29] LABS: Add Urine Microscopic? YES; Appearance Urine Clear (Clear); Bacteria Urine None Seen /hpf; Bilirubin Urine Negative (Negative); Blood Urine 2+ (Negative); Color Urine Yellow (Yellow); Glucose Urine UA Negative (Negative); Ketones Urine Trace mg/dL (Negative); Leukocyte Esterase Ur Negative LEU/UL (Negative); Need Manual Microscopic Reviewed; Nitrate Urine Negative (Negative); Non Pathogenic Casts 0-2; Protein Urine Negative (Negative); RBC Urine 21-50 /hpf (0-2); Specific Grav Ur 1.023 (1.001-1.035); Squamous Epithelial Cell Urine None Seen /hpf (Few); WBC Urine 0-5 /hpf (0-3); pH Urine 5.5 (5.0-9.0)
[2024-11-19 16:11] VITALS: BP 145/82; PULSE 103; RESP 16; TEMP 36.8; O2SAT 98
== END 2024-11-19 16:26 ==
PROVIDERS: Emergency Provider Emergency Medicine
DX: R31.0 Gross hematuria (principal); I12.9 Hypertensive chronic kidney disease with stage 1 through stage 4 chronic kidney disease, or unspecified chronic kidney disease; N18.9 Chronic kidney disease, unspecified; G30.9 Alzheimer's disease, unspecified; F02.80 Dementia in other diseases classified elsewhere, unspecified severity, without behavioral disturbance, psychotic disturbance, mood disturbance, and anxiety; I48.20 Chronic atrial fibrillation, unspecified; I25.10 Atherosclerotic heart disease of native coronary artery without angina pectoris; G40.909 Epilepsy, unspecified, not intractable, without status epilepticus; E78.5 Hyperlipidemia, unspecified; D64.9 Anemia, unspecified; Z79.01 Long term (current) use of anticoagulants; Z87.891 Personal history of nicotine dependence; Z79.899 Other long term (current) drug therapy; N20.0 Calculus of kidney; K80.20 Calculus of gallbladder without cholecystitis without obstruction; M84.48XA Pathological fracture, other site, initial encounter for fracture
CPT/HCPCS: 74176; 81001; 99284

== ENCOUNTER 2024-11-20 13:27 | Emergency (ER) | payer MEDICARE, OTHER, SELFPAY ==
--- NOTE | ~2024-11-20 | CT_ITS ---
History: Fall PROCEDURE: CT head without contrast. COMPARISON: 11/02/2024 TECHNIQUE: Axial imaging of the head performed from the skull base to the vertex without IV contrast. Sagittal a nd coronal reformations obtained. DLP: 1210 mGy-cm FINDINGS: The ventricles are enlarged. The dilatation of the ventricles is proportional to the degree of sulcal prominence, not uncommon in the senescent brain. Decreased attenuation is identified within the periventricular white matter, likely secondary to micr ovascular ischemic disease, in a patient of this age. There is no mass, mass effect or midline shift. There is no abnormal extra-axial fluid collection or intracranial hemorrhage. Visualized paranasal sinuses are clear. The mastoid air cells are well aerated. No acute displaced fractures within the overlying cranium. Impression: No acute intracranial hemorrhage or suspicious mass effect. Reviewed, dictated and finalized at location A. [employer] MANAGER Impression: No acute intracranial hemorrhage or suspicious mass effect.
[2024-11-20 13:29] VITALS: BP 102/80; PULSE 99; RESP 19; TEMP 36.4; O2SAT 100
[2024-11-20 14:56] LABS: Basophils Percent Auto 0.5 % (0.2-1.2); Eosinophils Absolute Auto 0.1 K/mm3 (0-0.3); Eosinophils Percent Auto 1.7 % (0-4.4); Hematocrit 35.3 % (42.0-52.0); Hemoglobin 11.7 g/dL (14.0-18.0); Lymphocytes Absolute Auto 0.95 K/mm3 (0.9-3.2); Lymphocytes Percent Auto 23.3 % (18.3-44.2); Mean Corpuscular HGB Conc 33.1 g/dl (32-36); Mean Corpuscular Volume 96.4 fl (80-100); Mean Platelet Volume 10.4 fl (7.4-10.4); Monocytes Absolute Auto 0.3 K/mm3 (0.1-0.6); Monocytes Percent Auto 8.1 % (2.6-8.5); Neutrophils Absolute Auto 2.7 K/mm3 (1.3-6.7); Neutrophils Percent Auto 66.4 % (45.5-73.1); Platelet Count Result 152 k/mm3 (150-375); Red Blood Count 3.66 M/mm3 (4.6-6.20); Red Cell Distribution Width 13.2 % (11.5-14.5); White Blood Count 4.1 K/mm3 (4.5-10.0)
[2024-11-20 15:13] LABS: Alanine Aminotransferase 20 U/L (6-50); Albumin Level 3.8 g/dL (3.5-5.1); Alkaline Phosphatase 89 U/L (38-126); Anion Gap 6 mmol/L (4-12); Aspartate Amino Transferase 28 U/L (17-59); Bilirubin,Total 0.4 mg/dL (0.2-1.3); Blood Urea Nitrogen 23 mg/dL (9-20); Calcium 8.5 mg/dL (8.4-10.2); Carbon Dioxide 32 mmol/L (22-30); Chloride 99 mmol/L (98-107); Estimated CRCL calculation 75 ml/min; Estimated Glomerular Filt Rate > 60; Glucose 106 mg/dL (65-110); Potassium 4.2 mmol/L (3.4-5.0); Sodium 137 mmol/L (137-145)
--- OUTSIDE RECORDS SUMMARY | 2024-11-20 15:44 | XMS_ITS | Clinical Summary ---
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
--- OUTSIDE RECORDS SUMMARY | 2024-11-20 15:44 | XMS_ITS ---
Author Organization [facility] [employer] Address [address] [place] [address] Care Team Providers Care Rat Poisoner Name Role Phone Nehemias DAVIES, Sonya Primary Care Provider Unavail able Augusto Nagel Unavailable [phone] REASON FOR VISIT 6 month f/u Medications Medication SIG (Take, Route, Frequency, Duration) Notes Start Date End Date Status Eliquis 5 MG Oral 11/19/2023 Active QUEtiapine Fumarate 50 MG 1 tablet at bedtime Orally Once a day for 30 days 09/25/2024 Active Lisinopril 2.5 MG Oral 11/19/2023 A ctive Rosuvastatin Calcium 40 MG Oral 11/19/2023 Active Vitamin B12 *Pick strength-form from [employer] for eRX* 11/19/2023 Active Memantine HCl ER 28 MG Oral 11/19/2023 Active Iron 325 mg (65 mg iron) Oral *Pick strength-form from [employer] for [facility]* 11/19/2023 Active Ezetimibe 10 MG [...] HCl 150 MG Oral 11/19/2023 Active Nystatin 984325 UNIT/ML Mouth/Throat 11/19/2023 Active Divalproex Sodium 125 [...] years Encounters Encounter Location Date Provider Diagnosis [facility] [address] [place] [address] 09/25/2024 Augusto Nagel Generalized anxiety disorder F41.1 [...] BRITTANY SOLOMON IDOB: 6 (69 yo M)Acc No.[id number]:09/25/2024 Patient:?BRITTANY SOLMOON I Provider:?SHANNAN FLOOD :1955???Age:69 Y???Sex:Male Rios e:09/25/2024 Address:[address] [place] [address], [facility] Pcp:Sonya Del Cid MD Check In:08:52 AM CSTCheck O ut:09:10 AM WHARFINGER CHIEF Subjective: * Chief Complaints: * ???6 month [...] 4 MG Tablet Therapy Pack Oral Nystatin 044051 UNIT/ML Suspension Mouth/Throat Lisinopril 5 MG Tablet Oral Depakote Sprinkles 125 MG Capsule Delayed Release Sprinkle Oral Donepezil HCl 10 MG Tablet Oral Sertraline HCl 100 MG Tablet Oral levETIRAcetam 500 MG Tablet Oral Memantine HCl ER 28 MG Capsule Extended Release 24 Hour Oral Iron 325 mg (65 mg iron) Tablet Oral , Notes to Pharmacist: *[facility]*Ezetimibe 10 MG Tablet Oral Econazole Nitrate 1 % Cream External Rosuvastatin Calcium 40 MG Tablet Oral Vitamin B12 , Notes to Pharmacist: *[facility]*Eliquis 5 MG Tablet Oral Lisinopril 2.5 MG Tablet Oral Taking Clindamycin HCl 150 MG Capsule Oral Taking Metoprolol Succinate ER 50 MG Tablet Extended Release 24 Hour Oral Taking Divalproex Sodium 125 MG Capsule Delayed Release Sprinkle Oral Taking methylPREDNISolone 4 MG Tablet Therapy Pack Oral Taking Nystatin 104392 UNIT/ML Suspension Mouth/Throat Taking Lisinopril 5 MG [...] , Notes to Pharmacist: *[facility]*Taking Ezetimibe 10 MG Tablet Oral Taking Econazole Nitrate 1 % Cream External Taking Rosuvastatin Calcium 40 MG Tablet Oral Taking Vitamin B12 , Notes to Pharmacist: *Pick strength-form from [employer] for eRX*Taking Eliquis 5 MG Tablet Oral [...] agitation) * Billing Information: * Visit Code:? 55149 OFFICE OUTPATIENT VISIT 25 MINUTES DETAILED HISTORY AND EXAM/MODERATE MEDICAL DECISION MAKING. * Procedure Codes:? * FINGER CHIEF Sign off status: Completed true * Provider:SHANNAN [place] Date:?11/2023 Generated for Jack escalante/John/Meenu on:?11/20/2024 03:44 PM WHARFINGER CHIEF History and Physical Notes * HPI (History [...]
--- OUTSIDE RECORDS SUMMARY | 2024-11-20 15:44 | XMS_ITS ---
Author Organization [facility] [employer] [facility] Address [facility] [place] [address] Care Team Providers Care Nurse'S Aides Teacher Name Role Phone Sonya Del Cid MD Primary Care Provider Unavail Augusto Karimi Unavailable [phone] REASON FOR VISIT Tele Appt Social History Sex Assigned At : Social History Observation Description Sex Assigned At Male Encounters Encounter Location Date Provider Diagnosis [place] [address] [place] [address] 11/01/2024 Augusto Nagel Plan Of Treatment No Information Progress Notes * BRITTANY SOLOMON IDOB: (69 yo M)Acc No.[id number]:11/01/2024 Patient:?BRITTANY SOLOMON I :1955???Age:69 Y???Sex:Male Address:[address], [place], [address] * true * Date:? Generated for Printi ng/Faindug/eTransmitting on:?11/20/2024 03:44 PM SKEIN WASHER
--- OUTSIDE RECORDS SUMMARY | 2024-11-20 15:44 | XMS_ITS | Patient Health Record ---
Author Organization [employer] Address [address] [place] [address] Care Team Providers Care Principal Secretary Name Role Phone Sarah Kolb Primary Care Provider Un available BereketkianShaylav Unavailable [phone] Allergies Allergen (clinical drug ingredient) Drug/Non Drug [...] Problem Status W/U Status Risk Notes Problem 31524141 Iron deficiency anemia, unspecified (D50.9) Active confirmed Problem 91909111 Duodenal ulcer, unspecified as acute or chronic, without hemorrhage or perforation (K26.9) Active confirmed Problem 7353811 Gastritis, unspecified, without bleeding (K29.70) Active confirmed Problem 91125064 Weight loss (R63.4) Active confirmed Problem 151780832 Anemia, unspecified type (D64.9) Active confirmed Would like to schedule upper endoscopy and colonoscopy to exclude blood loss through the GI tract and malignancy. He has never undergone endoscopy before. It has been eight years since his last colonoscopy. Problem 982676249 Chronic anticoagulation (Z79.01) Active confirmed Problem 441792295 Liver lesion (K76.9) Active confirmed Problem 907153576 Hepatic lesion (K76.9) Active confirmed Recent cardiac [...] Coverage End Date Medicare E2 [address] [address] [place] [address] [id number] Clayton Kessler Self - patient is the insured [place] [employer] [address] [place] [address] [id number] Clayton Kessler Self - patient is the [...]
--- OUTSIDE RECORDS SUMMARY | 2024-11-20 15:44 | XMS_ITS | Referral Summary ---
Author Organization [facility] [employer] Address [address] [place] [address] Care Team Providers Care Urban Design Consultant Name Role Phone Sarah Lowery MD Primary Care Provider [phone] Source Comments [facility] [employer],non-owned Affiliates and Associated Physician Practices is amultiple site organization consisting of ambulatory clinics and hospital sitesin [place], [place], [place] and [place]. This disclosure is being madepursuant to the Care Everywhere program and may not contain all information available regarding this patient. Last updated 18.[facility] [employer] Allergies Active Allergy Reactions Criticality Noted Date Comments Penicillins Rash,Other Medium 06/14/2012 Medications * Be aware that medications may not be up to date on this document. Alwaysverify current medications with the patient. Medication Sig Dispensed Refills Start Date End Date Status apixaban (Eliquis) 5 MG tablet 1 tablet(s), Oral, bid, 180 tablet(s), 3, 3, Route to Pharmacy Electronically, [facility] #[id number], [id number], 192, cm, 04/24/2022 1112, Height, 109.09, kg, [...] 90 tablet(s), 0, Route to Pharmacy Electronically, [facility] #[id number], [id number], 192, cm, 09/25/2022 1010, Height, 108.45, kg, [...] Comments Blood Pressure 124/82 11/09/2022 12:05 PM SCHOOL BUS DRIVER/CUSTODIAN Pulse 96 11/09/2022 12:05 PM SCHOOL BUS DRIVER/CUSTODIAN Temperature - - Respiratory Rate - - Oxygen Saturation 96% 11/09/2022 12:05 PM SCHOOL BUS DRIVER/CUSTODIAN Inhaled Oxygen Concentration - - Weight 104.3 kg (230 lb) 11/09/2022 12:05 PM SCHOOL BUS DRIVER/CUSTODIAN Height 193 cm (6' 4 ) 11/09/2022 12:05 PM SCHOOL BUS DRIVER/CUSTODIAN Body Mass Index 28 11/09/2022 12:05 PM SCHOOL BUS DRIVER/CUSTODIAN Plan of Treatment Not on file Care Teams Urban Design Consultant Relationship Specialty Start Date End Date Sarah Lowery MD [address] [facility] [address] [place] [address] PCP - General Internal Medicine 11/11/22
--- OUTSIDE RECORDS SUMMARY | 2024-11-20 15:44 | XMS_ITS | Clinical Summary ---
Author Organization [facility] Address [address] [place] [address]. [place] [address] [place] [address] Care Team Providers Care Testing Director Name Role Phone Unavailable Primary Care Provider [...] Diagnosed Date Neurocognitive disorder 08/09/2023 Chronic a-fib ([facility]) 08/09/2023 Chronic HFrEF (heart failure with reduced ejection fraction) ([facility]) 08/09/2023 Hypertension 04/17/2019 Hyperlipidemia 04/17/2019 Anxiety and depression 04/17/2019 Epilepsy ([facility]) 04/17/2019 Immunizations Name Administration Dates [...] Comments Blood Pressure 99/75 11/17/2023 10:48 AM ASSEMBLY ASSOCIATE Pulse 80 11/17/2023 10:48 AM ASSEMBLY ASSOCIATE Temperature 36 ??C (96.8 ??F) 11/17/2023 10:48 AM ASSEMBLY ASSOCIATE Respiratory Rate 18 11/17/2023 10:48 AM ASSEMBLY ASSOCIATE Oxygen Saturation 99% 11/17/2023 10:48 AM ASSEMBLY ASSOCIATE Inhaled Oxygen Concentration - - Weight 110.2 kg (243 lb) 11/17/2023 10:48 AM ASSEMBLY ASSOCIATE Height 190.5 cm (6' 3 ) 11/17/2023 10:48 AM ASSEMBLY ASSOCIATE Body Mass Index 30.37 11/17/2023 10:48 AM ASSEMBLY ASSOCIATE Plan of Treatment Health Maintenance Due Date [...] 10/11/2022, 11/08/2020, Additional history exists PHQ-2 (Physician [place]) 08/09/2024 08/09/2023 PHQ-2 (Physician [place]) 10/25/2024 08/09/2023 Colorectal Cancer Screening Colonoscopy (10 [...] age to complete this topic Insurance [place] [address] [place] [id number] [facility] Advance Directives Documents on File Type Date Recorded Patient Retail Delivery Driver Expl anation Advance Directives and Livin g Will 12/08/2023 6:24 AM POLST Power of Starch Mangle Tender 08/10/2023 2:44 PM [facility]
--- OUTSIDE RECORDS SUMMARY | 2024-11-20 15:44 | XMS_ITS | Clinical Summary ---
Author Organization [facility] [email or web address] Address [address] [place] [address] Care Team Providers Care Deep Submergence Vehicle Operator Name Role Phone Sarah Lowery MD Primary Care Provider [phone] Source Comments [facility] [employer],non-owned Affiliates and Associated Physician Practices is amultiple site organization consisting of ambulatory clinics and hospital sitesin [place], [place], [place] and [place]. This disclosure is being madepursuant to the Care Everywhere program and may not contain all information available regarding this patient. Last updated 18.[facility] [employer] Allergies Active Allergy Reactions Criticality Noted Date Comments Penicillins Rash,Other Medium 06/14/2012 Medications * Be aware that medications may not be up to date on this document. Alwaysverify current medications with the patient. Medication Sig Dispensed Refills Start Date End Date Status apixaban (Eliquis) 5 MG tablet 1 tablet(s), Oral, bid, 180 tablet(s), 3, 3, Route to Pharmacy Electronically, [facility] #[id number], [id number], 192, cm, 04/24/2022 1112, Height, 109.09, kg, [...] 90 tablet(s), 0, Route to Pharmacy Electronically, [facility] #[id number], [id number], 192, cm, 09/25/2022 1010, Height, 108.45, kg, [...] Comments Blood Pressure 124/82 11/09/2022 12:05 PM TRADE SHOW MANAGER Pulse 96 11/09/2022 12:05 PM TRADE SHOW MANAGER Temperature - - Respiratory Rate - - Oxygen Saturation 96% 11/09/2022 12:05 PM TRADE SHOW MANAGER Inhaled Oxygen Concentration - - Weight 104.3 kg (230 lb) 11/09/2022 12:05 PM TRADE SHOW MANAGER Height 193 cm (6' 4 ) 11/09/2022 12:05 PM TRADE SHOW MANAGER Body Mass Index 28 11/09/2022 12:05 PM TRADE SHOW MANAGER Plan of Treatment Health Maintenance Due Date [...] age to complete this topic Care Teams Deep Submergence Vehicle Operator Relationship Specialty Start Date End Date Sarah Lowery MD [address] [place] [address] [address] [place] [address] PCP - General Internal Medicine 11/11/22
--- OUTSIDE RECORDS SUMMARY | 2024-11-20 15:44 | XMS_ITS | Patient Health Summary ---
Author Organization [facility] Address [address] [place] [place] [address] Care Team Providers Care Research Physician Name Role Phone Sarah Lowery MD Primary Care Provider [phone] [facility],non-owned Affiliates and Associated Physician Practices is amultiple site organization consisting of ambulatory clinics and hospital sitesin [place], [place], [place] and [place]. This disclosure is being madepursuant to the Care Everywhere program and may not contain all information available regarding this patient. Last updated 18.[facility] Allergies * Penicillins(Rash,Other) -Medium Criticality Medications * Be aware that medications may not be up to date on this document. Alwaysverify current medications with the patient. * apixaban (Eliquis) 5 MG tablet(Started 05/26/2022) 1 tablet(s), Oral, bid, 180 tablet(s), 3, 3, Route to Pharmacy Electronically, [facility][id number], [id number], 192, cm, 04/24/2022 1112, Height, 109.09, kg, [...] 90 tablet(s), 0, Route to Pharmacy Electronically, [facility] #[id number], [id number], 192, cm, 09/25/2022 1010, Height, 108.45, kg, [...] Comments Blood Pressure 124/82 11/09/2022 12:05 PM ASSOCIATE PROFESSOR OF MUSICOLOGY Pulse 96 11/09/2022 12:05 PM ASSOCIATE PROFESSOR OF MUSICOLOGY Temperature - - Respiratory Rate - - Oxygen Saturation 96% 11/09/2022 12:05 PM ASSOCIATE PROFESSOR OF MUSICOLOGY Inhaled Oxygen Concentration - - Weight 104.3 kg (230 lb) 11/09/2022 12:05 PM ASSOCIATE PROFESSOR OF MUSICOLOGY Height 193 cm (6' 4 ) 11/09/2022 12:05 PM ASSOCIATE PROFESSOR OF MUSICOLOGY Body Mass Index 28 11/09/2022 12:05 PM ASSOCIATE PROFESSOR OF MUSICOLOGY Procedures * LAB RESULTS ORDER(Performed 10/26/2022) * [...] unspecified provider. Scanned Document IMAGING Care Teams Research Physician Relationship Specialty Start Date End Date Sarah Lowery MD [address] [place] [address] [address] [place] [address] PCP - General Internal Medicine 11/11/22
--- OUTSIDE RECORDS SUMMARY | 2024-11-20 15:45 | XMS_ITS ---
Author Organization [facility] [employer] Address [address] [place] [address] Care Team Providers Care Or Manager Name Role Phone Nehemias DAVIES, Sonya Primary Care Provider Unavail able Augusto Nagel Unavailable [phone] Allergies Allergen (clinical drug ingredient) Drug/Non Drug Allergy documented on EMR Reaction Allergy Type Onset Date Status Substance with penicillin structure and antibacterial mechanism of action (substance) Penicillins Unknown Drug Allergy 11/19/2023 Active REASON FOR VISIT follow up medication eval Medications Medication SIG (Take, Route, Frequency, Duration) Notes Start Date End Date Status Vitamin B12 *Pick strength-form from [employer] for eRX* 11/19/2023 Active Rosuvastatin Calcium 40 MG Oral 11/19/2023 Active Econazole Nitrate 1 % External 11/19/2023 Active Lisinopril 2.5 MG Oral 11/19/2023 A ctive Eliquis 5 MG Oral 11/19/2023 Active Ezetimibe 10 MG Oral 11/19/2023 Act radha Iron 325 mg (65 mg iron) Oral *Pick strength-form from [employer] for eRX* 11/19/2023 Active Memantine HCl ER 28 MG Oral 11/19/2023 Active levETIRAcetam 500 MG Oral 11/19/2023 Active Sertraline HCl 100 MG Oral 11/19/2023 Active Nystatin 725529 UNIT/ML Mouth/Throat 11/19/2023 Active methylPREDNISolone 4 MG [...] Status Risk Notes Problem Generalized anxiety disorder (50953686) Generalized anxiety disorder (F41.1) Active confirmed Problem Dementia in other diseases classified elsewhere, moderate, with other behavioral disturbance (F02.B18) Active confirmed Problem Mild recurrent major depression (39587902) Major depressive disorder, recurrent, mild (F33.0) Active confirmed Vital Signs Height 75.00 in 11/15/2024 Height-cm 190.50 cm 11/15/2024 Encounters Encounter Location Date Provider Diagnosis [facility] [employer] [facility] [address] [address] 11/15/2024 Augustodalton Suarezoza Generalized anxiety disorder F41.1 [...] BRITTANY SOLOMON IDOB: [birth year] (69 yo M)Acc No.[id number]:11/15/2024 Patient:?BRITTANY SOLOMON I Provider:?SHANNAN FLOOD :1955???Age:69 Y???Sex:Male Rios e:11/15/2024 Address:[address] [place] [id number] Pcp:Sonya Del Cid MD Check In:02:01 PM CSTCheck O ut:02:08 PM BREAK OUT WORKER Subjective: * Chief Complaints: * ???1. Follow up medication e terry. * HPI: ???History of Presenting Problem:?Depression?has become [...] Tablet Therapy Pack Oral , Taking Nystatin 446655 UNIT/ML Suspension Mouth/Throat , Taking Lisinopril 5 MG Tablet Oral , Taking Donepezil HCl 10 MG Tablet Oral , Taking Sertraline HCl 100 MG Tablet Oral , Taking levETIRAcetam 500 MG Tablet Oral , Taking Memantine HCl ER 28 MG Capsule Extended Release 24 Hour Oral , Taking Iron 325 mg (65 mg iron) Tablet Oral , Notes to Pharmacist: *Pick strength-form from [facility] for eRX*, Taking Ezetimibe 10 MG Tablet Oral , Taking Econazole Nitrate 1 % Cream External , Taking Rosuvastatin Calcium 40 MG Tablet Oral , Taking Vitamin B12 , Notes to Pharmacist: *Pick strength-form from [facility] for eRX*, Taking Eliquis 5 MG Tablet [...] agitation) * Billing Information: * Visit Code:? 36647 OFFICE OUTPATIENT VISIT 25 MINUTES DETAILED HISTORY AND EXAM/MODERATE MEDICAL DECISION MAKING. * Procedure Codes:? * Electronic signature of SHANNAN Sands on 11/20/2024 at 03:44 PM BREAK OUT WORKER Sign off status: Pending * Provider:SHANNAN WALLACE Date:? Generated for Jack escalante/John/Josésmitting on:?11/20/2024 03:44 PM BREAK OUT WORKER History and Physical Notes * HPI (History [...]
--- OUTSIDE RECORDS SUMMARY | 2024-11-20 15:45 | XMS_ITS | Patient Health Record ---
Author Organization [facility] [employer] Address [address] [place] [address] Care Team Providers Care Legal Archivist Name Role Phone Nehemias DAVIES, Sonya Primary Care Provider Unavail able Augusto Nagel Unavailable [phone] Migration, Provider Unavailable Unavailable Allergies Allergen (clinical [...] Eliquis 5 MG Oral 11/19/2023 Active Nystatin 088062 UNIT/ML Mouth/Throat 11/19/2023 Active Vitamin B12 *Pick strength-form from [employer] for eRX* 11/19/2023 Active methylPREDNISolone 4 MG Oral 11/19/2023 Active Rosuvastatin Calcium 40 MG Oral 11/19/2023 Active Metoprolol Succinate ER 50 MG Oral 11/19/2023 Active Econazole Nitrate 1 % External 11/19/2023 Active Clindamycin HCl 150 MG Oral 11/19/2023 Active Ezetimibe 10 MG Oral 11/19/2023 Act radha Iron 325 mg (65 mg iron) Oral *Pick strength-form from [employer] for eRX* 11/19/2023 Active Immunizations Vaccine Route [...] Risk Notes Problem Mild recurrent major depression (43018665) Major depressive disorder, recurrent, mild (F33.0) Active confirmed Problem Generalized anxiety disorder (20429967) Generalized anxiety disorder (F41.1) Active confirmed Problem Dementia in other diseases classified elsewhere, moderate, with other behavioral disturbance (F02.B18) Active confirmed Vital Signs Height-cm 190.50 cm 11/15/2024 Height 75.00 in 11/15/2024 Encounters Encounter Location Date Provider Diagnosis [facility] [employer] [facility] [address] [facility] [address] [place] [address] 11/15/2024 Augusto Nagel Generalized anxiety disorder F41.1 ; Dementia in other diseases classified elsewhere, moderate, with other behavioral disturbance F02.B18 and Major depressive disorder, recurrent, mild F33.0 [facility] [employer] [facility] [address] [address] 03/17/2024 Augusto Nagel [facility] [employer] [facility] [address] [facility] [address] [place] [address] 09/25/2024 Augusto Nagel Generalized anxiety disorder F41.1 ; Dementia in other diseases classified elsewhere, moderate, with other behavioral disturbance F02.B18 and Major depressive disorder, recurrent, mild F33.0 [place] [id number] [facility] [address] [facility] [address] [place] [address] 12/31/2023 Provider [place] [id number] [facility] [address] [facility] [address] [place] [address] 03/11/2024 Provider [place] [id number] [facility] [address] [facility] [address] [place] [address] 03/12/[address] [address] 09/19/2024 Augusto Nagel [place] [id number] [facility] [address] [address] 11/01/2024 Augusto Nagel Assessments Encounter Date Diagnosis [...] Coverage End Date [place] [address] [place] [address] [id number] BRITTANY SOLOMON Self - patient is the insured [place] [employer] Medicare Supplement [address] [employer] [place] [address] [id number] BRITTANY SOLOMON Self - patient is the insured Medical (General) History Medical History History ICD Code Problems: Dementia with behavioral distu rbance Generalized anxiety disorder Mild recurrent major depression 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
--- NOTE | 2024-11-20 16:11 | ED.FALL ---
HPI - Fall General Chief Complaint: Fall Stated Complaint: found @ NH on floor Time Seen by Provider: 11/20/24 13:51 History of Present Illness HPI Narrative: Patient is a 69-year-old male with dementia [place] [facility] [place]. No change from his baseline at this time. He is on Eliquis. No extremity injuries. He reports no pain. Family at bedside. Related Data Home Medications ?Medication ?Instructions ?Recorded ?Confirmed ?Last Taken ?Type Adults Multivitamin 1 tab-cap PO DAILY 06/07/24 06/07/24 Unknown History apixaban 5 mg tablet (Eliquis) 5 mg PO BID 06/07/24 06/07/24 Unknown History cyanocobalamin (vitamin B-12) 1,000 mcg PO .MONTUEWEDTHURFRI 06/07/24 06/07/24 Unknown History 1,000 mcg tablet divalproex 125 mg capsule,delayed 125 mg PO TID 06/07/24 06/07/24 Unknown History release sprinkle donepezil 10 mg tablet 10 mg PO HS 06/07/24 06/07/24 Unknown History ezetimibe 10 mg tablet 10 mg PO DAILY 06/07/24 06/07/24 Unknown History levetiracetam 500 mg tablet 500 mg PO Q12H 06/07/24 06/07/24 Unknown History lisinopril 2.5 mg tablet 2.5 mg PO DAILY 06/07/24 06/07/24 Unknown History memantine 28 mg capsule 28 mg PO HS 06/07/24 06/07/24 Unknown History sprinkle,extended release 24hr metoprolol succinate 25 mg 25 mg PO HS 06/07/24 06/07/24 Unknown History tablet,extended release 24 hr metoprolol succinate 25 mg 50 mg PO DAILY 06/07/24 06/07/24 Unknown History tablet,extended release 24 hr rosuvastatin 40 mg tablet 40 mg PO HS 06/07/24 06/07/24 Unknown History sertraline 100 mg tablet 100 mg PO DAILY 06/07/24 06/07/24 Unknown History sertraline 50 mg tablet 50 mg PO DAILY 06/07/24 06/07/24 Unknown History Allergies Allergy/AdvReac Type Severity Reaction Status Date / Time Penicillins Allergy Unknown Verified 11/20/24 13:38 Review of Systems Review of Systems: ROS unobtainable: Yes unobtainable due to mental status PMFSH Past Medical History Medical History Chronic kidney disease, unspecified Anemia, unspecified Alzheimer's disease, unspecified Hemangioma unspecified site Aneurysm of unspecified site Chronic atrial fibrillation, unspecified Atherosclerotic heart disease of citizen [place] coronary artery without angina pectoris Anxiety disorder Major depressive disorder Epilepsy Essential (primary) hypertension Hyperlipidemia Dementia Family History Family History (Updated 06/07/24 @ 22:17 by Megan Munoz RN) Other Unknown family medical history Social History Social History Smoking status: Former smoker Tobacco type: cigarettes Alcohol intake: never Substance use: never Substance use type: does not use Additional living arrangements comments: [facility] concerns: No Exam Narrative: GENERAL: Well-appearing, well-nourished, and in no acute distress. HEAD: Normocephalic, atraumatic. EYES: PERRL and EOMI. ENT: Mucous membranes moist. CHEST: Clear to auscultation. No respiratory distress. HEART: Regular rate and rhythm. No murmur heard. Normal peripheral pulses. EXTREMITIES: Normal range of motion. No edema. SKIN: Warm, dry, no rash. NEURO: Alert and oriented x1. PSYCH: Normal mood and affect. Course Course Emergency Course: No acute injury. Discharge back to facility. Vital Signs Vital signs: Vital Signs Temperature 97.6 F 11/20/24 13:29 Pulse Rate 99 11/20/24 13:29 Respiratory Rate 19 11/20/24 13:29 Blood Pressure 102/80 11/20/24 13:29 Pulse Oximetry 100 11/20/24 13:29 Oxygen Delivery Room Air 11/20/24 13:29 Temperature 97.6 F 11/20/24 13:29 Pulse Rate 99 11/20/24 13:29 Respiratory Rate 19 11/20/24 13:29 Blood Pressure 102/80 11/20/24 13:29 Pulse Oximetry 100 11/20/24 13:29 Oxygen Delivery Room Air 11/20/24 13:29 MDM - Fall Lab Data 11/20/24 14:49 11/20/24 14:49 Labs: Lab Results 11/20/24 Range/Units 14:49 WBC 4.1 L (4.5-10.0) K/mm3 RBC 3.66 L (4.6-6.20) M/mm3 Hgb 11.7 L (14.0-18.0) g/dL Hct 35.3 L (42.0-52.0) % MCV 96.4 (80-100) fl MCH 32.0 (26-34) pg MCHC 33.1 (32-36) g/dl RDW 13.2 (11.5-14.5) % Plt Count 152 (150-375) k/mm3 MPV 10.4 (7.4-10.4) fl Immature Gran % (Auto) 0.0 (0-0.5) % Neut % (Auto) 66.4 (45.5-73.1) % Lymph % (Auto) 23.3 (18.3-44.2) % Kimble % (Auto) 8.1 (2.6-8.5) % Eos % (Auto) 1.7 (0-4.4) % Baso % (Auto) 0.5 (0.2-1.2) % Lymph # (Auto) 0.95 (0.9-3.2) K/mm3 Kimble # (Auto) 0.3 (0.1-0.6) K/mm3 Eos # (Auto) 0.1 (0-0.3) K/mm3 Baso # (Auto) 0.0 (0.0-0.1) K/mm3 Abs Immat Gran (auto) 0.00 (0.00-0.031) K/mm3 Absolute Neuts (auto) 2.7 (1.3-6.7) K/mm3 Absolute Nucleated RBC 0.000 (0.0-0.012) K/mm3 Nucleated RBC % 0.0 (0.0-0.2) % Sodium 137 (137-145) mmol/L Potassium 4.2 (3.4-5.0) mmol/L Chloride 99 (98-107) mmol/L Carbon Dioxide 32 H (22-30) mmol/L Anion Gap 6 (4-12) mmol/L BUN 23 H (9-20) mg/dL Creatinine 0.97 (0.7-1.3) mg/dL Estim Creat Clear Calc 75 ml/min Estimated GFR > 60 (59 - ) Glucose 106 (65-110) mg/dL Calcium 8.5 (8.4-10.2) mg/dL Total Bilirubin 0.4 (0.2-1.3) mg/dL AST 28 (17-59) U/L ALT 20 (6-50) U/L Alkaline Phosphatase 89 (38-126) U/L Total Protein 7.0 (6.3-8.2) g/dL Albumin 3.8 (3.5-5.1) g/dL Imaging Data Radiologist's impression: ITS Impressions Head CT 11/20/24 14:23 Impression: No acute intracranial hemorrhage or suspicious mass effect. Discharge Plan Discharge Clinical Impression: Accident due to mechanical fall without injury Patient Disposition: Home, Self-Care Condition: Stable Instructions: Fall Prevention for Older Adults (ED) Additional Instructions: Return ER if you have a fall with an injury, you have worsening confusion, have additional concerns. Patient Language: Amharic Prescriptions: No Action Adults Multivitamin 1 tab-cap PO DAILY levetiracetam 500 mg tablet 500 mg PO Q12H donepezil 10 mg tablet 10 mg PO HS sertraline 100 mg tablet 100 mg PO DAILY Rx Instructions: total 150 cyanocobalamin (vitamin B-12) 1,000 mcg Tablet 1,000 mcg PO .AYAH metoprolol succinate 25 mg tablet extended release 24 hr 25 mg PO HS metoprolol succinate 25 mg tablet extended release 24 hr 50 mg PO DAILY sertraline 50 mg tablet 50 mg PO DAILY Rx Instructions: total 150 divalproex 125 mg capsule, delayed rel sprinkle 125 mg PO TID lisinopril 2.5 mg tablet 2.5 mg PO DAILY ezetimibe 10 mg tablet 10 mg PO DAILY rosuvastatin 40 mg tablet 40 mg PO HS Eliquis 5 mg tablet 5 mg PO BID memantine 28 mg capsule,sprinkle,ER 24hr 28 mg PO HS tamsulosin 0.4 mg Capsule 0.4 mg PO QAM Qty: 90 0RF furosemide 20 mg tablet 20 mg PO DAILY Qty: 14 0RF Follow-up/Referrals: UNKNOWN,DOCTOR [Primary Care Provider] - 1 Week
== END 2024-11-20 16:35 ==
PROVIDERS: Emergency Provider Emergency Medicine
DX: Z04.3 Encounter for examination and observation following other accident (principal); I12.9 Hypertensive chronic kidney disease with stage 1 through stage 4 chronic kidney disease, or unspecified chronic kidney disease; N18.9 Chronic kidney disease, unspecified; G30.9 Alzheimer's disease, unspecified; F02.80 Dementia in other diseases classified elsewhere, unspecified severity, without behavioral disturbance, psychotic disturbance, mood disturbance, and anxiety; I48.20 Chronic atrial fibrillation, unspecified; I25.10 Atherosclerotic heart disease of native coronary artery without angina pectoris; G40.909 Epilepsy, unspecified, not intractable, without status epilepticus; E78.5 Hyperlipidemia, unspecified; D64.9 Anemia, unspecified; Z87.891 Personal history of nicotine dependence; Z79.01 Long term (current) use of anticoagulants; Z79.899 Other long term (current) drug therapy; W19.XXXA Unspecified fall, initial encounter
CPT/HCPCS: 36415; 70450; 80053; 85025; 99284